=== PATIENT | male | born 1945 | race Caucasian/White ===

== ENCOUNTER 2017-12-03 09:39 | Emergency (ER) | payer MEDICARE, OTHER ==
[~2017-12-03] VITALS: Ht 182.9 cm; Wt 110.7 kg
[~2017-12-03 09:39] MED LIST: ALLO300T2 GT; ALLO300T2 PO; AMIT10TA6 PO; ASP81TEC PO; ATOR10TA66 PO; ATRV10T PO; CELE-63 PO; CLCX200C PO; DOXA8TAB3 PO; DOXA8TAB73 PO; DOXE6TAB3 PO; DOXY100C2 PO; ESOM40CA52 PO; FINA5TAB PO; GABA600T2 PO; GBPN600T PO; HYDR-3720 PO; HYDR-3820 PO; HYDR-700 PO; IPRA3AMP INH; LEVO150T PO; LISI10TA2 PO; LISI40TA PO; LVT.15T PO; NEBU-113 MC; NF-ESOM40C PO; NF-LOVAZAC PO; OXYC1TAB19 PO; PENT100C5 PO; ZOLP12.5 PO
[2017-12-03] MEDS ORDERED: RT-ALBUTEROL/IPRATROPIUM 3 ML (DUONEB) VIAL INH ONE (10:00)
--- NOTE | 2017-12-03 10:13 | ED General ---
General Chief Complaint: Cough/Cold/Flu Symptoms Stated Complaint: POSS PNUEMONIA, SOB AND RATTLING IN CHEST Source of Information: Patient Exam Limitations: No Limitations History of Present Illness Date Seen by Provider: Dec 03, 2017 Time Seen by Provider: 09:44 Initial Comments Here with report of cough and shortness of air that has worsened over the last week. Is a breathing treatment last night and that did not help. This is a metered-dose inhaler. He is currently on antibiotics for upper respiratory infection and that has not helped. Patient reports that he believes he may have pneumonia because the last time he felt like this that's what it had. Denies fevers but did report feeling warm last night and having chills. States that his temperature was not elevated at the time. He started Sudafed on his own. Reports coughing up white thick sputum. Denies nausea or vomiting. Timing/Duration: 1 Week, Getting Worse Severity: Moderate Associated Systoms: No Chest Pain, Cough, Fever/Chills, No Nausea/Vomiting, No Shortness of Air, No Weakness Allergies and Home Medications Allergies Coded Allergies: rofecoxib (Verified Allergy, Unknown, TAKES ASPIRIN AT HOME, 09/29/15) Home Medications Allopurinol 300 Mg Tablet, 300 MG PO DAILY, (Reported) Amoxicillin/Potassium Clav 1 Each Tablet, (Reported) Aspirin 81 Mg Tabec, 81 MG PO DAILY, (Reported) Atorvastatin Calcium 10 Mg Tablet, 10 MG PO DAILY, (Reported) LAST FILLED 09-27-14 #90 Doxazosin Mesylate 8 Mg Tablet, 8 MG PO HS, (Reported) Doxepin HCl 6 Mg Tablet, 6 MG PO HS PRN for INSOMNIA, (Reported) Esomeprazole Magnesium 40 Mg Capsule.dr, 40 MG PO BID, #60 Prescribed by: TISHA KEARNEY on 09/30/15 0848 Gabapentin 600 Mg Tablet, 600 MG PO BID, (Reported) Hydrocodone/Acetaminophen 1 Each Tablet, 1 TAB PO Q6H PRN for PAIN, (Reported) Ipratropium/Albuterol Sulfate 3 Ml Ampul.neb, 3 ML INH RTQ4HR, #150 Prescribed by: TISHA KEARNEY on 09/30/15 0848 Levothyroxine Sodium 150 Mcg Tablet, 150 MCG PO DAILY, (Reported) Lisinopril 40 Mg Tablet, 40 MG PO DAILY, (Reported) LAST FILLED 05-20-15 #90 [place]-3 Acid Ethyl Esters 1 Gm Capsule, 2 CAP PO BID, (Reported) UNKNOWN LAST FILL DATE, NOT ON FILE WITH [employer] MAIL ORDER OR [facility] Pentosan Polysulfate Sodium 100 Mg Capsule, 100 MG PO TID, (Reported) LAST FILLED 12-22-14 #270 Prednisone 10 Mg Tab, (Reported) [Prometh/Cod] , (Reported) Constitutional: see HPI, No chills, No fever EENTM: nose congestion, throat pain Respiratory: cough, short of breath, wheezing Cardiovascular: No chest pain, No edema Gastrointestinal: No abdominal pain, No nausea, No vomiting Musculoskeletal: No back pain, No muscle pain Skin: no symptoms reported Psychiatric/Neurological: No Symptoms Reported All Other Systems Reviewed Negative Unless Noted: Yes Past Stpnpyf-Dwqmcn-Fxqygu Hx Patient Social History Alcohol Use: Denies Use Recreational Drug Use: No Smoking Status: Never a Smoker Recent Foreign Travel: No Contact w/Someone Who Travel: No Immunizations Up To Date Tetanus Booster (TDap): Unknown Date of Pneumonia Vaccine: Jul 24, 2015 Date of Influenza Vaccine: Jul 24, 2015 Surgeries History of Surgeries: Yes Surgeries: Appendectomy, Gallbladder Respiratory History of Respiratory Disorde: No Cardiovascular History of Cardiac Disorders: Yes Cardiac Disorders: Hypertension Neurological History of Neurological Disord: No Reproductive System Hx Reproductive Disorders: No Gastrointestinal History of Gastrointestinal Di: Yes Gastrointestinal Disorders: Gastroesophageal Reflux, Gall Bladder Disease Musculoskeletal History of Musculoskeletal Dis: Yes Musculoskeletal Disorders: Arthritis Endocrine Endocrine Disorders: Hypothyroidsim Reviewed Nursing Assessment Reviewed/Agree w Nursing PMH: Yes Family Medical History Significant Family History: No Pertinent Family Hx Family Medial History: Arthritis 19 MOTHER Cancer of female genital organ G8 SISTER Diabetes mellitus G8 SISTER FH: breast cancer G8 SISTER FH: colon cancer 19 MOTHER FH: lymphoma 19 FATHER, Onset:60 years & older FH: rheumatic fever G8 SISTER Parkinson's disease 19 MOTHER, Onset:60 years & older Thyroid disease G8 SISTER Physical Exam-Suspected Sepsis Physical Exam Vital Signs Vital Signs - First Documented 12/03/17 09:43 Temp 97.0 Pulse 72 Resp 18 B/P (MAP) 154/94 (114) Pulse Ox 97 O2 Delivery Room Air Capillary Refill : General Appearance: No Apparent Distress, WD/WN HEENT: PERRL/EOMI, TMs Normal, Pharyngeal Erythema, Other (moderate bilateral nasal congestion with erythema) Neck: Non Tender, Supple Respiratory: No Respiratory Distress, Wheezing (a few scattered), Other ( course sounding cough) Cardiovascular: Regular Rate, Rhythm, No Murmur Gastrointestinal: Non Tender, Soft Back: Normal Inspection, No CVA Tenderness, No Vertebral Tenderness Extremity: Normal Range of Motion, Non Tender Neurologic/Psychiatric: Alert, Oriented x3 Skin: normal color, warm/dry Focused Exam Evaluation Lactate Level Laboratory Tests 12/03/17 10:02: Lactic Acid Level 1.61 Lactic Acid Level Laboratory Tests Test 12/03/17 10:02 Lactic Acid Level 1.61 MMOL/L (0.50-2.00) Progress/Results/Core Measures Suspected Sepsis SIRS Temperature: Pulse: Respiratory Rate: Laboratory Tests 12/03/17 10:02: White Blood Count 8.8 Blood Pressure / Mean: Laboratory Tests 12/03/17 10:02: Lactic Acid Level 1.61 Laboratory Tests 12/03/17 10:02: Creatinine 1.10, INR Comment 0.9, Platelet Count 198, Total Bilirubin 0.5 Results/Orders Lab Results Laboratory Tests Test 12/03/17 10:02 Range/Units White Blood Count 8.8 4.3-11.0 10^3/uL Red Blood Count 4.61 4.35-5.85 10^6/uL Hemoglobin 13.6 13.3-17.7 G/DL Hematocrit 39 L 40-54 % Mean Corpuscular Volume 85 80-99 FL Mean Corpuscular Hemoglobin 30 25-34 PG Mean Corpuscular Hemoglobin Concent 35 32-36 G/DL Red Cell Distribution Width 14.7 H 10.0-14.5 % Platelet Count 198 130-400 10^3/uL Mean Platelet Volume 9.6 7.4-10.4 FL Neutrophils (%) (Auto) 61 42-75 % Lymphocytes (%) (Auto) 32 12-44 % Monocytes (%) (Auto) 7 0-12 % Eosinophils (%) (Auto) 0 0-10 % Basophils (%) (Auto) 0 0-10 % Neutrophils # (Auto) 5.4 1.8-7.8 X 10^3 Lymphocytes # (Auto) 2.8 1.0-4.0 X 10^3 Monocytes # (Auto) 0.6 0.0-1.0 X 10^3 Eosinophils # (Auto) 0.0 0.0-0.3 10^3/uL Basophils # (Auto) 0.0 0.0-0.1 10^3/uL Prothrombin Time 12.6 12.2-14.7 SEC INR Comment 0.9 0.8-1.4 Activated Partial Thromboplast Time 25 24-35 SEC Sodium Level 137 135-145 MMOL/L Potassium Level 4.1 3.6-5.0 MMOL/L Chloride Level 103 98-107 MMOL/L Carbon Dioxide Level 24 21-32 MMOL/L Anion Gap 10 5-14 MMOL/L Blood Urea Nitrogen 23 H 7-18 MG/DL Creatinine 1.10 0.60-1.30 MG/DL Estimat Glomerular Filtration Rate > 60 BUN/Creatinine Ratio 21 Glucose Level 93 70-105 MG/DL Lactic Acid Level 1.61 0.50-2.00 MMOL/L Calcium Level 9.3 8.5-10.1 MG/DL Total Bilirubin 0.5 0.1-1.0 MG/DL Aspartate Amino Transf (AST/SGOT) 25 5-34 U/L Alanine Aminotransferase (ALT/SGPT) 31 0-55 U/L Alkaline Phosphatase 67 40-136 U/L Total Protein 6.9 6.4-8.2 GM/DL Albumin 4.0 3.2-4.5 GM/DL Micro Results Microbiology 12/03/17 Influenza Types A,B Antigen (ZACHARY) - Final, Complete My Orders Orders - MAURICE HERNANDEZ MD Cbc With Automated Diff (12/03/17 09:54) Comprehensive Metabolic Panel (12/03/17 09:54) Lactic Acid Analyzer (12/03/17 09:54) Blood Culture (12/03/17 09:54) Protime With Inr (12/03/17 09:54) Partial Thromboplastin Time (12/03/17 09:54) Influenza A And B Antigens (12/03/17 09:54) Chest Pa/Lat (2 View) (12/03/17 09:54) Albuterol/Ipra Inhalation Soln (Duoneb I (12/03/17 10:00) Svn Sm Volume Nebulizer Rt-Rfs (12/03/17 09:54) Medications Given in ED Current Medications Medications Dose Ordered Sig/Darya Route Start Time Stop Time Status Last Admin Dose Admin Albuterol/ Ipratropium 3 ml ONCE ONCE INH 12/03/17 10:00 12/03/17 10:01 DC 12/03/17 10:18 3 ML Vital Signs/I&O Vital Sign - Last 12Hours 12/03/17 12/03/17 09:43 10:27 Temp 97.0 Pulse 72 Resp 18 B/P (MAP) 154/94 (114) Pulse Ox 97 95 O2 Delivery Room Air Nasal Cannula Capillary Refill : Progress Note : Progress Note Seen and evaluated. IV, labs, UA, chest x-ray, DuoNeb treatment and influenza screen ordered. Monitor patient. Much improved after the DuoNeb treatment. Pending labs. 1135: Labs complete. No significant findings of pneumonia. Does have bronchitis and with history of working in the [employer] do believe he has chronic bronchitis. He would benefit from home nebulizer, especially with the current illness. He has nebulizer solution at home including DuoNeb and albuterol but does not have a machine. Breathing machine prescribed here. Patient would probably benefit from having this at all times. Discharged home with return precautions. Patient and family verbalize understanding instructions and agreement with plan. Diagnostic Imaging Diagonstic Imaging: Xray Plain Films/CT/US/NM/MRI: chest Comments VIA [facility] [place], [place] NAME: KAYLA WINTER [facility] REC#: [id number] PT STATUS: REG ER : 1945 PHYSICIAN: MAURICE HERNANDEZ MD ADMIT DATE: 12/03/17/ER Draft Date of Exam:12/03/17 CHEST PA/LAT (2 VIEW) EXAM: CHEST PA/LAT (2 VIEW) INDICATION: Cough. Congestion. COMPARISON: Chest radiograph 09/29/2015. FINDINGS: Normal heart size and pulmonary vascularity. No focal pulmonary opacity, pleural effusion or pneumothorax. No acute osseous findings. Surgical clips in the upper abdomen. IMPRESSION: No acute cardiopulmonary findings. Dictated on workstation # [id number] Dict: 12/03/17 1046 Trans: 12/03/17 1049 JOSE [id number] Interpreted by: SILVERIO MCNAMARA MD Electronically signed by: Departure Impression Impression: Primary Impression: Upper respiratory infection Qualified Codes: J06.9 - Acute upper respiratory infection, unspecified Additional Impression: Bronchitis Disposition: 01 HOME, SELF-CARE Condition: Improved Departure-Patient Inst. Decision time for Depature: 11:43 Referrals: TISHA KEARNEY DO (PCP/Family) Primary Care Physician Patient Instructions: Viral Upper Respiratory Infection, Adult (DC), Acute Bronchitis, Adult (DC) Add. Discharge Instructions: All discharge instructions reviewed with patient and/or family. Voiced understanding. You may use albuterol nebulizer treatment every 4 hours for the DuoNeb treatment every 6 hours. You may use Afrin nasal spray or the generic, 12 hour relief, 2 sprays to each nostril twice daily for 3 days only and then stop. Do not use more than 3 days. Avoid [id number] cough and cold medicine except for the Coricidin HBP as the others because of elevated blood pressure. Follow-up with your doctor this week for recheck and further evaluation. Return for worse pain, fever, vomiting, weakness, breathing problems or other concerns as needed. Copy Copies To 1: TISHA KEARNEY TIMOTHY D MD Dec 03, 2017 10:13
[2017-12-03 10:18] LABS: BASOPHILS % (AUTO) 0 % (0-10); EOSINOPHILS % (AUTO) 0 % (0-10); HEMATOCRIT 39 % (40-54); HEMOGLOBIN 13.6 G/DL (13.3-17.7); LYMPHOCYTES # (AUTO) 2.8 X 10^3 (1.0-4.0); LYMPHOCYTES % (AUTO) 32 % (12-44); MEAN CORPUSCULAR HEMOGLOBIN 30 PG (25-34); MEAN CORPUSCULAR HGB CONC 35 G/DL (32-36); MEAN CORPUSCULAR VOLUME 85 FL (80-99); MEAN PLATELET VOLUME 9.6 FL (7.4-10.4); MONOCYTES # (AUTO) 0.6 X 10^3 (0.0-1.0); MONOCYTES % (AUTO) 7 % (0-12); NEUTROPHILS # (AUTO) 5.4 X 10^3 (1.8-7.8); NEUTROPHILS % (AUTO) 61 % (42-75); PLATELET COUNT 198 10^3/uL (130-400); RED BLOOD COUNT 4.61 10^6/uL (4.35-5.85); RED CELL DISTRIBUTION WIDTH 14.7 % (10.0-14.5); WHITE BLOOD COUNT 8.8 10^3/uL (4.3-11.0)
[2017-12-03] MEDS ORDERED: PROMETH/COD (10:25)
[2017-12-03] MEDS ORDERED: PRD10T (10:25)
[2017-12-03] MEDS ORDERED: AMOX1TAB12 (10:25)
[2017-12-03 10:38] LABS: INR 0.9 (0.8-1.4); PROTHROMBIN TIME PATIENT 12.6 SEC (12.2-14.7)
--- NOTE | 2017-12-03 10:50 | Diagnostic Imaging Report ---
EXAM: CHEST PA/LAT (2 VIEW) INDICATION: Cough. Congestion. COMPARISON: Chest radiograph 09/29/2015. FINDINGS: Normal heart size and pulmonary vascularity. No focal pulmonary opacity, pleural effusion or pneumothorax. No acute osseous findings. Surgical clips in the upper abdomen. IMPRESSION: No acute cardiopulmonary findings. Dictated by: Dictated on workstation # [id number]
[2017-12-03 11:35] LABS: ALANINE AMINOTRANSFERASE 31 U/L (0-55); ALKALINE PHOSPHATASE 67 U/L (40-136); BILIRUBIN,TOTAL 0.5 MG/DL (0.1-1.0); BUN/CREATININE RATIO 21; CALCIUM 9.3 MG/DL (8.5-10.1); CARBON DIOXIDE 24 MMOL/L (21-32); CHLORIDE 103 MMOL/L (98-107); GFR ESTIMATED > 60; GLUCOSE 93 MG/DL (70-105); POTASSIUM 4.1 MMOL/L (3.6-5.0); SODIUM 137 MMOL/L (135-145); TOTAL PROTEIN 6.9 GM/DL (6.4-8.2)
[2017-12-03 11:58] VITALS: BP 152/79
--- OUTSIDE RECORDS SUMMARY | 2017-12-04 11:17 | XMS REPORT | Clinical Summary ---
Author Author [facility] Organization [facility] Address Unknown Phone Unavailable Care Team Providers Care Air Conditioning Insulation Installer Name Role Phone Georgie Francisco MD Unavailable Source Comments Some departments are not documenting in the electronic medical record. If you do not see the information that you expected, contact Release of Information in the Health Information Management department at [phone] for further assistance in locating additional records.[facility] Allergies Not on File Current Medications Prescription Sig. Disp. Refills Start End Date Status Date niacin CR (NIASPAN) 500 Take 1 Tab by mouth 60 Tab 0 08/14/20 Active mg Tb24 tablet daily. 12 Active Problems Not on file Social History Tobacco Use Types Packs/Day Years Used Date Never Assessed Sex Assigned at Date Recorded Not on file Last Filed Vital Signs Not on file Plan of Treatment Health Maintenance Due Date Last Done Comments HEPATITIS C SCREENING 1945 PHYSICAL (COMPREHENSIVE) 1952 EXAM PERTUSSIS VACCINE 1957 TETANUS VACCINE 1963 COLORECTAL CANCER 1996 SCREENING SHINGLES VACCINE 2006 PREVNAR/PNEUMOVAX (#1) 2011 INFLUENZA VACCINE 05/24/2017 Results Not on filefrom Last 3 Months
--- OUTSIDE RECORDS SUMMARY | 2017-12-04 11:18 | XMS REPORT | Continuity of Care Document ---
Author Author [facility] [address] Organization [facility] [address] Address Unknown Phone Unavailable Allergies Active Description Code Type Severity Reaction Onset Reported/Identified Relationship to Patient Clinical Status Yes rofecoxib [id number] Drug Allergy Unknown N/A 11/05/2006 Yes rofecoxib [id number] Drug Allergy Unknown TAKES ASPIRIN A 09/29/2015 Medications There is no data. Problems Date Dx Coded Attending Type Code Diagnosis Diagnosed By 05/26/2011 Ot 592.0 CALCULUS OF KIDNEY 07/10/2012 Ot 715.36 LOC OSTEOARTH NOS-L/LEG 07/10/2012 Ot V57.1 PHYSICAL THERAPY NEC 07/14/2012 Ot 722.52 LUMB/ LUMBOSAC DISC DEGEN 07/14/2012 Ot V57.1 PHYSICAL THERAPY NEC 09/17/2013 PETEY WHITNEY, ROSALIE Gross Ot 562.10 DIVERTICULOSIS COLON (W/O MENT OF HEMORR 09/17/2013 PETEY WHITNEY, ROSALIE Gross Ot V12.72 PERSONAL HISTORY OF COLONIC POLYPS 02/25/2015 CHRISTEL LUIS, TISHA S Ot 611.71 02/25/2015 CHRISTEL LUIS TISHA S Ot 611.72 03/22/2015 JUN SOLORZANO MD Ot 244.9 HYPOTHYROIDISM NOS 03/22/2015 JUN SOLORZANO MD Ot 401.9 HYPERTENSION NOS 03/22/2015 JUN SOLORZANO MD Ot 787.91 DIARRHEA 09/29/2015 Ot 592.0 09/29/2015 Ot 592.0 09/30/2015 AYDENDDARRYL DO TISHA S Ot E03.9 HYPOTHYROIDISM, UNSPECIFIED 09/30/2015 ORENDDARRYL DO TISHA S Ot I10 ESSENTIAL (PRIMARY) HYPERTENSION 09/30/2015 AYDENDDARRYL DO TISHA S Ot I20.9 ANGINA PECTORIS, UNSPECIFIED 09/30/2015 AYDENDDARRYL DO TISHA S Ot I44.7 LEFT BUNDLE-BRANCH BLOCK, UNSPECIFIED 09/30/2015 TISHA KEARNEY DO Ot J45.909 UNSPECIFIED ASTHMA, UNCOMPLICATED 09/30/2015 TISHA KEARNEY DO S Ot K21.9 GASTRO-ESOPHAGEAL REFLUX DISEASE WITHOUT 09/30/2015 TISHA KEARNEY DO S Ot 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 09/30/2015 TISHA KEARNEY DO S Ot R06.09 OTHER FORMS OF DYSPNEA 09/30/2015 TISHA KEARNEY DO S Ot R07.89 OTHER CHEST PAIN 09/30/2015 TISHA KEARNEY DO S Ot Z79.899 OTHER JAIL (CURRENT) DRUG THERAPY 09/30/2015 TISHA KEARNEY DO S Ot Z87.891 PERSONAL HISTORY OF NICOTINE DEPENDENCE 10/29/2015 TISHA KEARNEY DO S Ot R06.00 10/29/2015 TISHA KEARNEY DO Ot R07.9 10/29/2015 TISHA KEARNEY DO S Ot R78.89 04/15/2016 TISHA KEARNEY DO S Ot M25.512 PAIN IN LEFT SHOULDER 04/15/2016 TISHA KEARNEY DO S Ot M54.2 CERVICALGIA 05/07/2016 TISHA KEARNEY DO S Ot M25.512 PAIN IN LEFT SHOULDER 05/07/2016 TISHA KEARNEY DO S Ot M54.2 CERVICALGIA 05/08/2016 Ot 592.0 CALCULUS OF KIDNEY 05/08/2016 Ot 717.3 DERANG MED MENISCUS NEC 05/08/2016 Ot 721.3 LUMBOSACRAL SPONDYLOSIS 05/08/2016 TISHA KEARNEY DO S Ot 608.9 MALE GENITAL DIS NOS 05/08/2016 PETEY WHITNEY, ROSALIE Gross Ot V72.84 EXAM PRE-OPERATIVE NOS 05/08/2016 TISHA KEARNEY DO Ot 397.0 TRICUSPID VALVE DISEASE 05/08/2016 TISHA KEARNEY DO S Ot 401.9 HYPERTENSION NOS 05/08/2016 TISHA KEARNEY DO S Ot 424.0 MITRAL VALVE DISORDER 05/08/2016 TISHA KEARNEY DO Ot 782.3 EDEMA 05/08/2016 PABLO KEARNEY DOQUELINE S Ot 786.2 COUGH 05/08/2016 AYDENDER DO, TISHA S Ot 611.71 MASTODYNIA 05/08/2016 AYDENDER DO, TISHA S Ot 611.72 LUMP OR MASS IN BREAST 05/08/2016 AYDENDER DOPABLOTISHA S Ot R06.00 DYSPNEA, UNSPECIFIED 05/08/2016 AYDENDER DOPABLOTISHA S Ot R07.9 CHEST PAIN, UNSPECIFIED 05/08/2016 AYDENDER DO, TISHA S Ot R06.00 DYSPNEA, UNSPECIFIED 05/08/2016 ORENDER DO, TISHA S Ot R07.9 CHEST PAIN, UNSPECIFIED 05/08/2016 AYDENDER DOPABLOTISHA S Ot R78.89 FINDING OF OTH SUBSTANCES, NOT NORMALLY 05/09/2016 Ot 592.0 CALCULUS OF KIDNEY 05/09/2016 Ot 717.3 DERANG MED MENISCUS NEC 05/09/2016 Ot 721.3 LUMBOSACRAL SPONDYLOSIS 05/09/2016 LOGAN KEARNEY DOLINE S Ot 608.9 MALE GENITAL DIS NOS 05/09/2016 PETEY WHITNEY, ROSALIE Gross Ot V72.84 EXAM PRE-OPERATIVE NOS 05/09/2016 AYDENDLOGAN ANDREWS DOLINE S Ot 397.0 TRICUSPID VALVE DISEASE 05/09/2016 AYDENDER DOPABLOTISHA S Ot 401.9 HYPERTENSION NOS 05/09/2016 AYDENDER PABLO LUISTISHA S Ot 424.0 MITRAL VALVE DISORDER 05/09/2016 AYDENDPABLO ANDREWS DOQUELINE S Ot 782.3 EDEMA 05/09/2016 AYDENDER LOGAN LUISLINE S Ot 786.2 COUGH 05/09/2016 AYDENDER PABLO LUISTISHA S Ot 611.71 MASTODYNIA 05/09/2016 AYDENDER DO, TISHA S Ot 611.72 LUMP OR MASS IN BREAST 05/09/2016 AYDENDER DOPABLOTISHA S Ot R06.00 DYSPNEA, UNSPECIFIED 05/09/2016 AYDENDER DOPABLOTISHA S Ot R07.9 CHEST PAIN, UNSPECIFIED 05/09/2016 AYDENDER DO, TISHA S Ot R06.00 DYSPNEA, UNSPECIFIED 05/09/2016 AYDENDER PABLO LUISTISHA S Ot R07.9 CHEST PAIN, UNSPECIFIED 05/09/2016 ORENDER DO, TISHA S Ot R78.89 FINDING OF OTH SUBSTANCES, NOT NORMALLY 05/09/2016 Ot 592.0 CALCULUS OF KIDNEY 05/09/2016 Ot 717.3 DERANG MED MENISCUS NEC 05/09/2016 Ot 721.3 LUMBOSACRAL SPONDYLOSIS 05/09/2016 ORENDER DO, TISHA S Ot 608.9 MALE GENITAL DIS NOS 05/09/2016 PETEY WHITNEY, ROSALIE Gross Ot V72.84 EXAM PRE-OPERATIVE NOS 05/09/2016 ORENDER DO, TISHA S Ot 397.0 TRICUSPID VALVE DISEASE 05/09/2016 ORENDER DO, TISHA S Ot 401.9 HYPERTENSION NOS 05/09/2016 AYDENDER DO, TISHA S Ot 424.0 MITRAL VALVE DISORDER 05/09/2016 AYDENDER DO, TISHA S Ot 782.3 EDEMA 05/09/2016 AYDENDER DO, TISHA S Ot 786.2 COUGH 05/09/2016 AYDENDER DO, TISHA S Ot 611.71 MASTODYNIA 05/09/2016 ORENDER DO, TISHA S Ot 611.72 LUMP OR MASS IN BREAST 05/09/2016 AYDENDER DO, TISHA S Ot R06.00 DYSPNEA, UNSPECIFIED 05/09/2016 ORENDER DO, TISHA S Ot R07.9 CHEST PAIN, UNSPECIFIED 05/09/2016 ORENDER DO, TISHA S Ot R06.00 DYSPNEA, UNSPECIFIED 05/09/2016 ORENDER DO, TISHA S Ot R07.9 CHEST PAIN, UNSPECIFIED 05/09/2016 ORENDER DO, TISHA S Ot R78.89 FINDING OF OTH SUBSTANCES, NOT NORMALLY 07/08/2016 Ot 592.0 CALCULUS OF KIDNEY 07/08/2016 Ot 717.3 DERANG MED MENISCUS NEC 07/08/2016 Ot 721.3 LUMBOSACRAL SPONDYLOSIS 07/08/2016 AYDENDER DO, TISHA S Ot 608.9 MALE GENITAL DIS NOS 07/08/2016 ROSALIE ANGELO MD Ot V72.84 EXAM PRE-OPERATIVE NOS 07/08/2016 AYDENDER DOPABLOTISHA S Ot 397.0 TRICUSPID VALVE DISEASE 07/08/2016 AYDENDER DO, TISHA S Ot 401.9 HYPERTENSION NOS 07/08/2016 AYDENDER DO, TISHA S Ot 424.0 MITRAL VALVE DISORDER 07/08/2016 AYDENDER DO, TISHA S Ot 782.3 EDEMA 07/08/2016 AYDENDER DO, TISHA S Ot 786.2 COUGH 07/08/2016 AYDENDER DO, TISHA S Ot 611.71 MASTODYNIA 07/08/2016 AYDEND DO, TISHA S Ot 611.72 LUMP OR MASS IN BREAST 07/08/2016 AYDEND DO, TISHA S Ot R06.00 DYSPNEA, UNSPECIFIED 07/08/2016 AYDEND DO, TISHA S Ot R07.9 CHEST PAIN, UNSPECIFIED 07/08/2016 AYDENDER DO, TISHA S Ot R06.00 DYSPNEA, UNSPECIFIED 07/08/2016 AYDEND DO, TISHA S Ot R07.9 CHEST PAIN, UNSPECIFIED 07/08/2016 AYDEND DO TISHA S Ot R78.89 FINDING OF OTH SUBSTANCES, NOT NORMALLY 09/01/2016 Ot 592.0 CALCULUS OF KIDNEY 09/01/2016 Ot 717.3 DERANG MED MENISCUS NEC 09/01/2016 Ot 721.3 LUMBOSACRAL SPONDYLOSIS 09/01/2016 DOUGLAS TISHA S Ot 608.9 MALE GENITAL DIS NOS 09/01/2016 PETEY WHITNEY, ROSALIE Gross Ot V72.84 EXAM PRE-OPERATIVE NOS 09/01/2016 AYDEDEYANIRADARRYL TISHA S Ot 397.0 TRICUSPID VALVE DISEASE 09/01/2016 AYDEND DO, TISHA S Ot 401.9 HYPERTENSION NOS 09/01/2016 AYDENDER DO, TISHA S Ot 424.0 MITRAL VALVE DISORDER 09/01/2016 AYDENDER DO, TISHA S Ot 782.3 EDEMA 09/01/2016 AYDENDER DO, TISHA S Ot 786.2 COUGH 09/01/2016 AYDENDER DO, TISHA S Ot 611.71 MASTODYNIA 09/01/2016 AYDENDER DO, TISHA S Ot 611.72 LUMP OR MASS IN BREAST 09/01/2016 TISHA KEARNEY DO Ot R06.00 DYSPNEA, UNSPECIFIED 09/01/2016 TISHA KEARNEY DO Ot R07.9 CHEST PAIN, UNSPECIFIED 09/01/2016 TISHA KEARNEY DO Ot R06.00 DYSPNEA, UNSPECIFIED 09/01/2016 TISHA KEARNEY DO Ot R07.9 CHEST PAIN, UNSPECIFIED 09/01/2016 TISHA KEARNEY DO Ot R78.89 FINDING OF OTH SUBSTANCES, NOT NORMALLY Procedures There is no data. Results Test Result Range Complete blood count (CBC) with automated white blood cell (WBC) differential - 12/03/17 10:02 Blood leukocytes automated count (number/volume) 8.8 10*3/uL 4.3-11.0 Blood erythrocytes automated count (number/volume) 4.61 10*6/uL 4.35-5.85 Venous blood hemoglobin measurement (mass/volume) 13.6 g/dL 13.3-17.7 Blood hematocrit (volume fraction) 39 % 40-54 Automated erythrocyte mean corpuscular volume 85 [foz_us] 80-99 Automated erythrocyte mean corpuscular hemoglobin (mass per erythrocyte) 30 pg 25-34 Automated erythrocyte mean corpuscular hemoglobin concentration measurement ( mass/volume) 35 g/dL 32-36 Automated erythrocyte distribution width ratio 14.7 % 10.0-14.5 Automated blood platelet count (count/volume) 198 10*3/uL 130-400 Automated blood platelet mean volume measurement 9.6 [foz_us] 7.4-10.4 Automated blood neutrophils/100 leukocytes 61 % 42-75 Automated blood lymphocytes/100 leukocytes 32 % 12-44 Blood monocytes/100 leukocytes 7 % 0-12 Automated blood eosinophils/100 leukocytes 0 % 0-10 Automated blood basophils/100 leukocytes 0 % 0-10 Blood neutrophils automated count (number/volume) 5.4 10*3 1.8-7.8 Blood lymphocytes automated count (number/volume) 2.8 10*3 1.0-4.0 Blood monocytes automated count (number/volume) 0.6 10*3 0.0-1.0 Automated eosinophil count 0.0 10*3/uL 0.0-0.3 Automated blood basophil count (count/volume) 0.0 10*3/uL 0.0-0.1 Influenza virus A and B antigen detection - 12/03/17 10:02 FLU RESULT NEGATIVE FOR INFLUENZA A AND B ANTIGENS BY IA NRG Blood lactic acid measurement (moles/volume) - 12/03/17 10:02 Blood lactic acid measurement (moles/volume) 1.61 mmol/L 0.50-2.00 PT panel in platelet poor plasma by coagulation assay - 12/03/17 10:02 Prothrombin time (PT) in platelet poor plasma by coagulation assay 12.6 s 12.2-14.7 INR in platelet poor plasma or blood by coagulation assay 0.9 0.8-1.4 Activated partial thromboplastin time (aPTT) in platelet poor plasma bycoagulation assay - 12/03/17 10:02 Activated partial thromboplastin time (aPTT) in platelet poor plasma bycoagulation assay 25 s 24-35 Comprehensive metabolic panel - 12/03/17 10:02 Serum or plasma sodium measurement (moles/volume) 137 mmol/L 135-145 Serum or plasma potassium measurement (moles/volume) 4.1 mmol/L 3.6-5.0 Serum or plasma chloride measurement (moles/volume) 103 mmol/L 98-107 Carbon dioxide 24 mmol/L 21-32 Serum or plasma anion gap determination (moles/volume) 10 mmol/L 5-14 Serum or plasma urea nitrogen measurement (mass/volume) 23 mg/dL 7-18 Serum or plasma creatinine measurement (mass/volume) 1.10 mg/dL 0.60-1.30 Serum or plasma urea nitrogen/creatinine mass ratio 21 NRG Serum or plasma creatinine measurement with calculation of estimated glomerular filtration rate > NR Serum or plasma glucose measurement (mass/volume) 93 mg/dL 70-105 Serum or plasma calcium measurement (mass/volume) 9.3 mg/dL 8.5-10.1 Serum or plasma total bilirubin measurement (mass/volume) 0.5 mg/dL 0.1-1.0 Serum or plasma alkaline phosphatase measurement (enzymatic activity/volume) 67 U/L 40-136 Serum or plasma aspartate aminotransferase measurement (enzymatic activity/ volume) 25 U/L 5-34 Serum or plasma alanine aminotransferase measurement (enzymatic activity/volume ) 31 U/L 0-55 Serum or plasma protein measurement (mass/volume) 6.9 g/dL 6.4-8.2 Serum or plasma albumin measurement (mass/volume) 4.0 g/dL 3.2-4.5 Encounters ACCT No. Visit Date/Time Discharge Status Pt. Type Provider Facility Loc./Unit Complaint [id number] 05/07/2016 08:27:00 05/07/2016 10:36:00 DIS Outpatient CHRISTEL LUIS TISHA S [facility] [address] REHAB CERVICAL AND L SHOULDER PAIN [id number] 09/29/2015 11:50:00 09/30/2015 10:00:00 DIS Outpatient AYDENDDARRYL DO TISHA S [facility] [address] CATH CHEST PAIN,SOB [id number] 09/22/2015 12:05:00 09/22/2015 23:59:59 CLS Outpatient CHRISTEL LUIS TISHA S [facility] [address] RAD CHEST PAIN,DYSPNEA, ELEVATED D-DIMER [id number] 09/22/2015 10:54:00 09/22/2015 23:59:59 CLS Outpatient CHRISTEL LUIS TISHA S [facility] [address] LAB DYSPNEA, CHEST PAIN [id number] 03/22/2015 09:57:00 03/22/2015 13:42:00 DIS Emergency JEANINE WHITNEY, JUN Gray [facility] [address] ER DIARRHEA/CHILLS TICK BITES [id number] 01/27/2015 09:08:00 01/27/2015 23:59:59 CLS Outpatient CHRISTEL LUIS TISHA S [facility] [address] RAD BILAT BREAST PAIN, SWELLING [id number] 02/05/2014 11:54:00 02/05/2014 23:59:59 CLS Outpatient CHRISTEL LUIS TISHA S [facility] [address] RAD COUGH [id number] 12/14/2013 10:26:00 12/14/2013 23:59:59 CLS Outpatient CHRISTEL LUIS TISHA S [facility] [address] CARD EDEMA,HTN [id number] 09/17/2013 06:47:00 09/17/2013 09:40:00 DIS Outpatient ROSALIE ANGELO MD [facility] [address] SDC HX POLYPS, ABDOMINAL PAIN [id number] 09/13/2013 07:10:00 09/13/2013 23:59:59 CLS Outpatient ROSALIE ANGELO MD [facility] [address] PREOP HX POLYPS, ABDOMINAL PAIN [id number] 08/17/2013 11:53:00 08/17/2013 23:59:59 CLS Outpatient TISHA KEARNEY DO [facility] [address] RAD LT TESTICULAR PAIN [id number] 12/03/2017 10:35:00 Document Registration [id number] 07/10/2012 12:57:00 Document Registration [id number] 05/24/2012 11:06:00 Document Registration [id number] 03/31/2012 13:37:00 Document Registration [id number] 05/27/2011 00:00:00 Document Registration [id number] 03/02/2011 09:55:00 Document Registration [id number] 07/30/2010 00:00:00 Document Registration
== END 2017-12-03 11:56 | disposition home or self-care (01) ==
LOC: EDUNIT# 09:39 → ER 09:40
DX: J06.9 Acute upper respiratory infection, unspecified (principal); K21.9 Gastro-esophageal reflux disease without esophagitis; E03.9 Hypothyroidism, unspecified; I10 Essential (primary) hypertension; Z90.49 Acquired absence of other specified parts of digestive tract; Z79.52 Long term (current) use of systemic steroids; Z79.82 Long term (current) use of aspirin; Z88.8 Allergy status to other drugs, medicaments and biological substances
CPT/HCPCS: 36415; 71046; 80053; 83605; 85025; 85610; 85730; 87040; 87804; 94640; 99284

== ENCOUNTER → 2018-11-20 | Outpatient (CLI) | payer MEDICARE, OTHER ==
[~2018-11-20] MED LIST changes: +AMOX1TAB12; -GABA600T2 PO; -IPRA3AMP INH; +IPRA3AMP31 INH; +PRD10T; +PROMETH/COD
--- NOTE | 2018-11-20 12:17 | Diagnostic Imaging Report ---
EXAMINATION: PA and lateral chest at 11:12 a.m. INDICATION: Productive cough. FINDINGS: The heart size is within normal limits and stable when compared to 12/03/2017. The lungs are clear. There is no evidence for failure, pneumonia, or for a pleural effusion. The mediastinum is not widened. The osseous structures are intact. IMPRESSION: There is no evidence for active disease. When compared to the prior exam, there has been no significant change. Dictated by: Dictated on workstation # [id number]
== END ==
LOC: RAD 11:03
PROVIDERS: ATTEND Family Medicine
DX: R05 Cough (principal)
CPT/HCPCS: 71046

== ENCOUNTER 2018-11-27 06:33 | Outpatient (CLI) | payer MEDICARE, OTHER ==
[~2018-11-27] VITALS: Ht 188 cm; Wt 103.9 kg
[2018-11-27] MEDS ORDERED: TRIA1TAB3 PO (16:08)
[2018-11-27] MEDS ORDERED: PENT100C3 PO (16:08)
[2018-11-27] MEDS ORDERED: ESOM40CA52 PO (16:08)
[2018-11-27] MEDS ORDERED: LEVO137T2 PO (16:08)
[2018-11-27] MEDS ORDERED: FINA5TAB6 PO (16:08)
== END 2018-11-27 16:09 | disposition home or self-care (01) ==
LOC: PREOP 06:33
PROVIDERS: ATTEND Surgery
DX: Z01.818 Encounter for other preprocedural examination (principal)

== ENCOUNTER 2018-12-04 08:32 | Day surgery (SDC) | payer MEDICARE, OTHER ==
[~2018-12-04] VITALS: Ht 188 cm; Wt 103.9 kg
[~2018-12-04 08:32] MED LIST changes: +FINA5TAB6 PO; +LEVO137T2 PO; +PENT100C3 PO; +TRIA1TAB3 PO
--- OUTSIDE RECORDS SUMMARY | 2018-12-04 08:37 | XMS REPORT | Clinical Summary ---
Author Author [facility] Organization [facility] Address Unknown Phone Unavailable Care Team Providers Care Vp Software Support Name Role Phone Georgie Francisco MD Unavailable Source Comments Some departments are not documenting in the electronic medical record. If you do not see the information that you expected, contact Release of Information in the Health Information Management department at [phone] for further assistance in locating additional records.[facility] Allergies Not on File Medications End Date Status Medication Sig Dispensed Refills Start Date Active niacin CR (NIASPAN) 500 Take 1 Tab by 60 Tab 0 mg Tb24 tablet mouth daily. 2 Active Problems Not on file Social History Date Tobacco Use Types Packs/Day Years Used Never Assessed Sex Assigned at Date Recorded Not on file Industry Job Start Date Occupation Not on file Not on file Not on file Travel End Travel History Travel Start No recent travel history available. Last Filed Vital Signs Not on file Plan of Treatment Health Maintenance Due Date Last Done Comments HEPATITIS C SCREENING 1945 PHYSICAL (COMPREHENSIVE) 1953 EXAM DTAP/TDAP VACCINES (1 - 1964 Tdap) COLORECTAL CANCER 1996 SCREENING SHINGLES RECOMBINANT 1996 VACCINE (1 of 2) PNEUMONIA (PCV13/PPSV23) 2011 VACCINES (1 of 2 - PCV13) INFLUENZA VACCINE 05/24/2018 Results Not on filefrom Last 3 Months
--- OUTSIDE RECORDS SUMMARY | 2018-12-04 08:38 | XMS REPORT | Continuity of Care Document ---
Author Author [facility] Organization [facility] Address Unknown Phone Unavailable Allergies Active Description Code Type Severity Reaction Onset Reported/Identified Relationship to Patient Clinical Status Yes rofecoxib [id number] Drug Allergy Unknown N/A 11/05/2006 Yes rofecoxib [id number] Drug Allergy Unknown TAKES ASPIRIN A 09/29/2015 [...] TISHA S Ot E03.9 HYPOTHYROIDISM, UNSPECIFIED 09/30/2015 ORENDER DO TISHA S Ot I10 ESSENTIAL (PRIMARY) HYPERTENSION 09/30/2015 AYDENDADRRYL DO TISHA S Ot I20.9 ANGINA PECTORIS, UNSPECIFIED 09/30/2015 AYDENDDARRYL DO TISHA S Ot I44.7 LEFT BUNDLE-BRANCH BLOCK, UNSPECIFIED 09/30/2015 TISHA GONZALEZ DO Ot J45.909 UNSPECIFIED ASTHMA, UNCOMPLICATED 09/30/2015 TISHA GONZALEZ DO S Ot K21.9 GASTRO-ESOPHAGEAL REFLUX DISEASE WITHOUT 09/30/2015 TISHA GONZALEZ DO S Ot 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 09/30/2015 TISHA GONZALEZ DO S Ot R06.09 OTHER FORMS OF DYSPNEA 09/30/2015 TISHA GONZALEZ DO S Ot R07.89 OTHER CHEST PAIN 09/30/2015 TISHA GONZALEZ DO S Ot Z79.899 OTHER JAIL (CURRENT) DRUG THERAPY 09/30/2015 TISHA GONZALEZ DO S Ot Z87.891 PERSONAL HISTORY OF NICOTINE DEPENDENCE 10/29/2015 TISHA GONZALEZ DO S Ot R06.00 10/29/2015 TISHA GONZALEZ DO Ot R07.9 10/29/2015 TISHA GONZALEZ DO S Ot R78.89 04/15/2016 TISHA GONZALEZ DO S Ot M25.512 PAIN IN LEFT SHOULDER 04/15/2016 TISHA GONZALEZ DO S Ot M54.2 CERVICALGIA 05/07/2016 TISHA GONZALEZ DO S Ot M25.512 PAIN IN LEFT SHOULDER 05/07/2016 TISHA GONZALEZ DO S Ot M54.2 CERVICALGIA 05/08/2016 Ot 592.0 CALCULUS OF KIDNEY 05/08/2016 Ot 717.3 DERANG MED MENISCUS NEC 05/08/2016 Ot 721.3 LUMBOSACRAL SPONDYLOSIS 05/08/2016 TISHA GONZALEZ DO S Ot 608.9 MALE GENITAL DIS NOS 05/08/2016 PETEY WHITNEY, ROSALIE Gross Ot V72.84 EXAM PRE-OPERATIVE NOS 05/08/2016 TISHA GONZALEZ DO Ot 397.0 TRICUSPID VALVE DISEASE 05/08/2016 TISHA GONZALEZ DO S Ot 401.9 HYPERTENSION NOS 05/08/2016 TISHA GONZALEZ DO S Ot 424.0 MITRAL VALVE DISORDER 05/08/2016 TISHA GONZALEZ DO Ot 782.3 EDEMA 05/08/2016 PABLO GONZALEZ DOQUELINE S Ot 786.2 COUGH 05/08/2016 AYDENDER [...] 05/09/2016 Ot 721.3 LUMBOSACRAL SPONDYLOSIS 05/09/2016 LOGAN GONZALEZ DOLINE S Ot 608.9 MALE GENITAL DIS [...] 611.72 LUMP OR MASS IN BREAST 09/01/2016 ORENDER DO, TISHA S Ot R06.00 DYSPNEA, UNSPECIFIED 09/01/2016 ORENDER DO, TISHA S Ot R07.9 CHEST PAIN, UNSPECIFIED 09/01/2016 ORENDER DO, TISHA S Ot R06.00 DYSPNEA, UNSPECIFIED 09/01/2016 ORENDER DO, TISHA S Ot R07.9 CHEST PAIN, UNSPECIFIED 09/01/2016 ORENDER DO, TISHA S Ot R78.89 FINDING OF OTH SUBSTANCES, NOT NORMALLY 12/03/2017 MAURICE HERNANDEZ MD Ot E03.9 HYPOTHYROIDISM, UNSPECIFIED 12/03/2017 MAURICE HERNANDEZ MD Ot I10 ESSENTIAL (PRIMARY) HYPERTENSION 12/03/2017 MAURICE HERNANDEZ MD, Ot J06.9 ACUTE UPPER RESPIRATORY INFECTION, UNSPE 12/03/2017 MAURICE HERNANDEZ MD Ot K21.9 GASTRO-ESOPHAGEAL REFLUX DISEASE WITHOUT 12/03/2017 MAURICE HERNANDEZ MD Ot R06.02 SHORTNESS OF BREATH 12/03/2017 MAURICE HERNANDEZ MD Ot Z79.52 RESEARCH CLERK (CURRENT) USE OF SYSTEMIC STER 12/03/2017 MAURICE HERNANDEZ MD Ot Z79.82 JAIL (CURRENT) USE OF ASPIRIN 12/03/2017 MAURICE HERNANDEZ MD Ot Z88.8 ALLERGY STATUS TO OTH DRUG/MEDS/BIOL SUB 12/03/2017 MAURICE HERNANDEZ MD Ot Z90.49 ACQUIRED ABSENCE OF OTHER SPECIFIED PART 11/20/2018 AYDENDER DO, TISHA S Ot 608.9 MALE GENITAL DIS NOS 11/20/2018 PETEY WHITNEY, ROSALIE Gross Ot V72.84 EXAM PRE-OPERATIVE NOS 11/20/2018 AYDENDER DO, TISHA S Ot 397.0 TRICUSPID VALVE DISEASE 11/20/2018 ORENDER DO, TISHA S Ot 401.9 HYPERTENSION NOS 11/20/2018 ORENDER DO, TISHA S Ot 424.0 MITRAL VALVE DISORDER 11/20/2018 ORENDER DO, TISHA S Ot 782.3 EDEMA 11/20/2018 ORENDER DO, TISHA S Ot 786.2 COUGH 11/20/2018 AYDENDER DO, TISHA S Ot 611.71 MASTODYNIA 11/20/2018 TISHA GONZALEZ DO Ot 611.72 LUMP OR MASS IN BREAST 11/20/2018 CHRISTEL LUIS, TISHA Gould Ot R06.00 DYSPNEA, UNSPECIFIED 11/20/2018 AYDENDDARRYL LUIS, TISHA Gould Ot R07.9 CHEST PAIN, UNSPECIFIED 11/20/2018 AYDENDDARRYL LUIS, TISHA Gould Ot R06.00 DYSPNEA, UNSPECIFIED 11/20/2018 AYDENDER , TISHA Gould Ot R07.9 CHEST PAIN, UNSPECIFIED 11/20/2018 AYDENDDARRYL LUIS, TISHA Gould Ot R78.89 FINDING OF OTH SUBSTANCES, NOT NORMALLY 11/28/2018 PETEY WHITNEY, ROSALIE Gross Ot Z01.818 ENCOUNTER FOR OTHER PREPROCEDURAL EXAMIN Procedures There is no data. Results Test [...] calculation of estimated glomerular filtration rate > NRG Serum or plasma glucose measurement (mass/volume) 93 [...] plasma albumin measurement (mass/volume) 4.0 g/dL 3.2-4.5 Bacterial blood culture - 12/03/17 10:02 Bacterial blood culture NG NRG Encounters ACCT No. Visit Date/Time Discharge Status Pt. Type Provider Facility Loc./Unit Complaint [id number] 11/27/2018 06:33:00 11/27/2018 16:09:00 DIS Outpatient PETEY WHITNEY, ROSALIE Gross [facility] PREOP COLONOSCOPY [id number] 11/20/2018 11:03:00 11/20/2018 23:59:59 CLS Outpatient PABLO GONZALEZ DOQUELINE S [facility] RAD COUGH [id number] 12/03/2017 09:40:00 12/03/2017 11:56:00 DIS Emergency MAURICE HERNANDEZ MD [facility] ER POSS PNUEMONIA, SOB AND RATTLING IN CHEST [id number] 05/07/2016 08:27:00 05/07/2016 10:36:00 DIS Outpatient CHRISTEL LUIS TISHA S [facility] REHAB CERVICAL AND L SHOULDER PAIN [id number] 09/29/2015 11:50:00 09/30/2015 10:00:00 DIS Outpatient CHRISTEL LUIS TISHA S [facility] CATH CHEST PAIN,SOB [id number] 09/22/2015 12:05:00 09/22/2015 23:59:59 CLS Outpatient CHRISTEL LUIS TISHA S [facility] RAD CHEST PAIN,DYSPNEA, ELEVATED D-DIMER [id number] 09/22/2015 10:54:00 09/22/2015 23:59:59 CLS Outpatient PABLO GONZALEZ DOQUELINE S [facility] LAB DYSPNEA, CHEST PAIN [id number] 03/22/2015 09:57:00 03/22/2015 13:42:00 DIS Emergency JEANINE WHITNEY, JUN Gray [facility] ER DIARRHEA/CHILLS TICK BITES [id number] 01/27/2015 09:08:00 01/27/2015 23:59:59 CLS Outpatient TISHA GONZALEZ DO [facility] RAD BILAT BREAST PAIN, SWELLING [id number] 02/05/2014 11:54:00 02/05/2014 23:59:59 CLS Outpatient PABLO GONZALEZ DOQUELINE S [facility] RAD COUGH [id number] 12/14/2013 10:26:00 12/14/2013 23:59:59 CLS Outpatient TISHA GONZALEZ DO S [facility] CARD EDEMA,HTN [id number] 09/17/2013 06:47:00 09/17/2013 09:40:00 DIS Outpatient ROSALIE ANGELO MD [facility] SDC HX POLYPS, ABDOMINAL PAIN [id number] 09/13/2013 07:10:00 09/13/2013 23:59:59 CLS Outpatient ROSAILE ANGELO MD [facility] PREOP HX POLYPS, ABDOMINAL PAIN [id number] 08/17/2013 11:53:00 08/17/2013 23:59:59 CLS Outpatient TISHA GONZALEZ DO [facility] RAD LT TESTICULAR PAIN [id number] 12/04/2018 09:30:00 PEN Preadmit ROSALIE ANGELO MD [facility] ENDO POLYP SURVEILLANCE [id number] 07/10/2012 12:57:00 Document Registration [id number] 05/24/2012 11:06:00 Document Registration [id number] 03/31/2012 13:37:00 Document Registration [id number] 05/27/2011 00:00:00 Document Registration [id number] 03/02/2011 09:55:00 Document Registration [id number] 07/30/2010 00:00:00 Document Registration 12/201711/27/2018 15:26:28 11/27/2018 23:59:59 CLS Outpatient Tisha Gonzalez.
[2018-12-04 08:45] VITALS: BP 147/78
[2018-12-04] MEDS ORDERED: NS IV 500 ML 500 ML IV PRN (08:46)
[2018-12-04] MEDS ORDERED: NS IV 500 ML 500 ML ONE (08:58)
[2018-12-04] MEDS ORDERED: fentaNYL INJECTION 100 MCG/2 ML AMP IVP ONE (09:00)
[2018-12-04] MEDS ORDERED: MIDAZOLAM 2 MG/2 ML (VERSED) VIAL IVP ONE (09:00)
--- NOTE | 2018-12-04 09:41 | History & Physicial ---
History of Present Illness History of Present Illness Reason for visit/HPI for surveillance colonoscopy. Date of Admission 12/04/18 Date Seen by a Provider: Dec 04, 2018 Time Seen by a Provider: 09:41 I consulted on this patient on 12/04/18 09:40 Attending Physician Rosalie Truong MD Admitting Physician Jesusita Gonzalez DO Consult Allergies and Home Medications Allergies Coded Allergies: rofecoxib (Verified Allergy, Unknown, TAKES ASPIRIN AT HOME, 09/29/15) Home Medications Allopurinol 300 Mg Tablet, 300 MG PO DAILY, (Reported) Atorvastatin Calcium 10 Mg Tablet, 10 MG PO DAILY, (Reported) Doxazosin Mesylate 8 Mg Tablet, 8 MG PO HS, (Reported) Esomeprazole Magnesium 40 Mg Capsule.dr, 40 MG PO BID, (Reported) Finasteride 5 Mg Tablet, 5 MG PO DAILY, (Reported) Levothyroxine Sodium 137 Mcg Tablet, 137 MCG PO DAILY, (Reported) Pentosan Polysulfate Sodium 100 Mg Capsule, 100 MG PO TID, (Reported) Triamterene/Hydrochlorothiazid 1 Each Tablet, 1 EACH PO DAILY, (Reported) Patient Home Medication List Home Medication List Reviewed: Yes Past Rkmgkoi-Zndljj-Rxhbrw Hx Patient Social History Employed/Student: retired Alcohol Use: Denies Use Recreational Drug Use: No Smoking Status: Former Smoker Former Smoker, Quit: Nov 27, 1980 2nd Hand Smoke Exposure: No Recent Foreign Travel: No Contact w/other who traveled: No Recent Hopitalizations: No Immunizations Up To Date Tetanus Booster (TDap): Unknown Date of Pneumonia Vaccine: Jul 24, 2015 Date of Influenza Vaccine: Jul 24, 2018 Seasonal Allergies Seasonal Allergies: No Surgeries Yes (kidney stones, knee scope) Appendectomy, Gallbladder Respiratory No Cardiovascular Yes Hypertension Neurological No Reproductive System Hx Reproductive Disorders: No Genitourinary Yes Kidney Stones Gastrointestinal Yes Gastroesophageal Reflux, Polyps Musculoskeletal Yes Arthritis Endocrine History of Endocrine Disorders: Yes Endocrine Disorders: Hypothyroidsim HEENT History of HEENT Disorders: No Cancer No Psychosocial History of Psychiatric Problem: No Integumentary History of Skin or Integumenta: No Blood Transfusions History of Blood Disorders: No Family Medical History Significant Family History: No Pertinent Family Hx Family Hx: Arthritis 19 MOTHER Cancer of female genital organ G8 SISTER Colon cancer requiring screening colonoscopy Diabetes mellitus G8 SISTER FH: breast cancer G8 SISTER FH: colon cancer 19 MOTHER FH: lymphoma 19 FATHER, Onset:60 years & older FH: rheumatic fever G8 SISTER Parkinson's disease 19 MOTHER, Onset:60 years & older Thyroid disease G8 SISTER Review of Systems Constitutional: no symptoms reported EENTM: no symptoms reported Respiratory: no symptoms reported Cardiovascular: no symptoms reported Gastrointestinal: no symptoms reported Genitourinary: no symptoms reported Musculoskeletal: no symptoms reported Skin: no symptoms reported Psychiatric/Neurological: No Symptoms Reported Physical Exam Vital Signs Vital Signs - First Documented 12/04/18 08:45 Temp 98.4 Pulse 87 Resp 20 B/P (MAP) 147/78 (101) Pulse Ox 98 O2 Delivery Room Air Capillary Refill : Height, Weight, BMI Height: 6'2.00" Weight: 229lbs. 0.0oz. [id number]; 29.4 BMI Method:Stated General Appearance: No Apparent Distress Neck: Normal Inspection Respiratory: Lungs Clear Cardiovascular: Regular Rate, Rhythm Gastrointestinal: Non Tender, Soft Rectal: Deferred Extremity: Normal Inspection Neurologic/Psychiatric: Alert, Oriented x3 Skin: Warm/Dry Assessment/Plan Assessment and Plan lady with a history of polyps. For surveillance colonoscopy. Admission Diagnosis Admission Status: Other (Outpt Proc) ROSALIE TRUONG MD Dec 04, 2018 09:41
--- NOTE | 2018-12-04 09:42 | Conscious Sedation/ASA ---
Conscious Sedation Pre-Proced Time 09:42 ASA Score 2 For ASA 3 and 4: Consider anesthesia and medical clearance. Also, for patients with a history of failed moderate sedation consider anesthesia. Airway Lungs Heart ASA score ASA 1: a normal healthy patient ASA 2: a patient with a mild systemic disease (mid diabetes, controlled hypertension, obesity ASA 3: a patient with a severe systemic disease that limits activity (angina , COPD, prior Myocardial infarction) ASA 4: a patient with an incapacitating disease that is a constant threat to life (CHF, renal failure) ASA 5: a moribund patient not expected to survive 24 hrs. (ruptured aneurysm) ASA 6: a declared brain- patient whose organs are being harvested. For emergent operations, add the letter E after the classification Mallampati Classification Grade 1 Sedation Plan Discussed options with patient/fam The patient is an appropriate candidate to undergo the planned procedure, sedation, and anesthesia. The patient immediately re-assessed prior to indication. ROSALIE ANGELO MD Dec 04, 2018 09:42
[2018-12-04] MEDS ORDERED: MIDAZOLAM 2 MG/2 ML (VERSED) VIAL ONE ×3 (10:29→10:30)
[2018-12-04] MEDS ORDERED: fentaNYL INJECTION 100 MCG/2 ML AMP ONE (10:30)
--- NOTE | 2018-12-04 11:00 | Endo Procedure Record ---
Endo Procedure Report Date of Procedure Last Colonoscopy: Yes Dec 04, 2018 Surgeon (s) ROSALIE ANGELO MD Post Procedure/Op Diagnosis very few sigmoid diverticulae Procedure Performed Colonoscopy to cecum Description of Procedure Anesthesia Type: Conscious Sedation Specimen(s) collected/removed None Description of the Procedure Indication for the procedure: this gentleman came in for surveillance colonoscopy. Informed consent was obtained after reviewing the procedure in detail. Description of the procedure: He was placed in left lateral decubitus position and his vital signs were monitored. Conscious sedation was achieved using Versed and fentanyl. Digital rectal examination was unremarkable. The colonoscope was then introduced into the rectum and advanced all the way up to the cecum. The quality of bowel preparation was excellent. The scope was then withdrawn slowly and the mucosa examined in a systematic fashion. Findings: A few sigmoid diverticulae. No recurrent polyps were found. He tolerated the procedure well and was taken back to the nursing area in a stable condition. Impression: Polyp surveillance. No recurrence. Recommend repeating in 5 years. Copy Copies To 1: TISHA KEARNEY XAVIER M MD Dec 04, 2018 11:00
--- NOTE | 2018-12-04 11:01 | Discharge Inst-Simple/Standard ---
Discharge Inst-Standard Discharge Medications New, Converted or Re-Newed RX: Other Patient Instructions/Follow Up Plan of Care/Instructions/FU: Repeat colonsocopy in 5 years Activity as Tolerated: Yes Discharge Diet: No Restrictions ROSALIE ANGELO MD Dec 04, 2018 11:01
[2018-12-04 11:05] VITALS: BP 107/58
[2018-12-04 11:30] VITALS: BP 110/66
[2018-12-04 11:35] VITALS: BP 110/66
== END 2018-12-04 11:35 | disposition home or self-care (01) ==
LOC: ENDO 08:32
PROVIDERS: ATTEND Surgery
DX: Z12.11 Encounter for screening for malignant neoplasm of colon (principal); K57.30 Diverticulosis of large intestine without perforation or abscess without bleeding; Z86.010 Personal history of colon polyps; I10 Essential (primary) hypertension; E03.9 Hypothyroidism, unspecified; K21.9 Gastro-esophageal reflux disease without esophagitis; Z87.891 Personal history of nicotine dependence; Z79.899 Other long term (current) drug therapy

== ENCOUNTER → 2019-01-30 | Outpatient (CLI) | payer MEDICARE, OTHER ==
--- NOTE | 2019-01-30 14:32 | Diagnostic Imaging Report ---
INDICATION: Shortness of breath. PA and lateral chest. Heart size and pulmonary vascularity are normal. Lungs are clear. There are no effusions or pneumothoraces. IMPRESSION: Negative chest. Dictated by: Dictated on workstation # [id number]
== END ==
LOC: RAD 13:54
PROVIDERS: ATTEND Family Medicine
DX: R06.02 Shortness of breath (principal); R05 Cough
CPT/HCPCS: 71046

== ENCOUNTER → 2019-05-02 | Outpatient (CLI) | payer MEDICARE, OTHER ==
--- NOTE | 2019-05-02 14:34 | Diagnostic Imaging Report ---
EXAMINATION: Chest, 2 views. HISTORY: Left-sided axillary pain. COMPARISON: 01/30/2019. FINDINGS: The lungs are clear. No edema. No pneumonia. No pleural effusion. No pneumothorax. The heart is normal in size. IMPRESSION: Clear lungs. Dictated by: Dictated on workstation # [id number]
== END ==
LOC: RAD 14:14
PROVIDERS: ATTEND Nurse Practitioner Family
DX: M79.622 Pain in left upper arm (principal); R07.9 Chest pain, unspecified
CPT/HCPCS: 71046

== ENCOUNTER 2019-06-06 15:24 | Inpatient (IN) | payer MEDICARE, OTHER ==
[~2019-06-06] VITALS: Ht 188 cm; Wt 101.3 kg
[2019-06-06] MEDS ORDERED: IOHEXOL 350 MG/ML 150 ML (OMNIPAQUE 350) VIAL IV ONE (16:15)
[2019-06-06] MEDS ORDERED: HOLD METFORMIN - RECEIVED CONTRAST 20 ML VIAL IV SCH (16:15)
[2019-06-06] MEDS ORDERED: NS 100 ML (IVPB) BAG IV ONE (16:15)
[2019-06-06] MEDS ORDERED: PATIENT MAY USE OWN MEDS, ALL PO SCH (16:30)
[2019-06-06] MEDS ORDERED: ENOXAPARIN 100 MG/1 ML (LOVENOX) SYR SC NR (16:30)
[2019-06-06 16:43] VITALS: BP 153/65
[2019-06-06 16:49] LABS: BASOPHILS % (AUTO) 0 % (0-10); EOSINOPHILS # (AUTO) 0.1 10^3/uL (0.0-0.3); EOSINOPHILS % (AUTO) 1 % (0-10); HEMATOCRIT 35 % (40-54); HEMOGLOBIN 11.6 G/DL (13.3-17.7); LYMPHOCYTES # (AUTO) 2.4 X 10^3 (1.0-4.0); LYMPHOCYTES % (AUTO) 28 % (12-44); MEAN CORPUSCULAR HEMOGLOBIN 28 PG (25-34); MEAN CORPUSCULAR HGB CONC 33 G/DL (32-36); MEAN CORPUSCULAR VOLUME 85 FL (80-99); MEAN PLATELET VOLUME 9.2 FL (7.4-10.4); MONOCYTES # (AUTO) 0.9 X 10^3 (0.0-1.0); MONOCYTES % (AUTO) 10 % (0-12); NEUTROPHILS # (AUTO) 5.2 X 10^3 (1.8-7.8); NEUTROPHILS % (AUTO) 61 % (42-75); PLATELET COUNT 214 10^3/uL (130-400); RED CELL DISTRIBUTION WIDTH 14.3 % (10.0-14.5); WHITE BLOOD COUNT 8.5 10^3/uL (4.3-11.0)
--- NOTE | 2019-06-06 16:52 | Diagnostic Imaging Report ---
PROCEDURE: CT angiography of the chest with contrast. TECHNIQUE: Multiple contiguous axial images were obtained through the chest after uneventful bolus administration of intravenous contrast. 3D reconstructed CTA MIP acquisitions were also performed. Auto Exposure Controls were utilized during the CT exam to meet ALARA standards for radiation dose reduction. INDICATION: Lower extremity DVT. COMPARISON: 09/22/2015. FINDINGS: There are large bilateral pulmonary emboli involving the right and left pulmonary arteries and extending into the submental vessels of the lower lobes and right middle lobe. The right heart is dilated with reflux of contrast into the inferior vena cava and giving right heart strain. No pericardial effusion. The aorta is normal in caliber. No axillary, supraclavicular, or mediastinal lymphadenopathy. Limited views of the upper abdomen are unremarkable. The lungs are clear without edema or pneumonia. No pleural effusion or pneumothorax. No suspicious pulmonary nodules. IMPRESSION: 1. Extensive bilateral pulmonary emboli with CT evidence of right heart strain. 2. The findings were communicated to Dr. Gonzalez by Dr. Rolon on 06/06/2019 at 4:45 PM. Dictated by: Dictated on workstation # [id number]
[2019-06-06 16:53] VITALS: BP 153/65
[2019-06-06 17:03] LABS: INR 0.9 (0.8-1.4)
[2019-06-06 17:08] LABS: ALBUMIN 3.6 GM/DL (3.2-4.5); BILIRUBIN,TOTAL 0.5 MG/DL (0.1-1.0); CALCIUM 9.1 MG/DL (8.5-10.1); CREATININE SERUM 1.24 MG/DL (0.60-1.30); TOTAL PROTEIN 6.6 GM/DL (6.4-8.2)
--- NOTE | 2019-06-06 17:12 | NUR ---
KAYLA WINTER Emma admitted to room 422-1, with an admitting diagnosis of DVT right leg, on 06/06/19 from via home. KAYLA WINTER introduced to surroundings, call light, bed controls, phone, TV, temperature control, lights, meal times, smoking policy, visitor policy, side rail policy, bathrooms and showers. Patient Rights given to patient in the handbook. KAYLA WINTER verbalizes understanding that [facility] is not responsible for the loss or damage to any personal effects or valuables that are kept in the patients possession during their hospitalization. The following Patient Care Plans were discussed with the patient: Discharge Planning, medications, pain management, and dehydration. KAYLA WINTER verbalizes understanding of Interdisciplinary Patient Education. Patient and/or family were informed about the Rapid Response Team and its purpose.
[2019-06-06] MEDS ORDERED: ACETAMINOPHEN 325 MG TABLET PO PRN (17:15)
--- NOTE | 2019-06-06 18:19 | NUR ---
Ndt Inspector notified of echo that is ordered.
--- NOTE | 2019-06-06 19:23 | Consultation-Cardiology ---
HPI-Cardiology Cardiology Consultation Date of Consultation 06/06/19 Date of Admission Time Seen by Provider: 19:21 Indication: Pulmonary embolism HPI 74 years old gentleman with history of hypertension, was in his usual state of health until earlier test week when he started having pain and discomfort in his right thigh, workup showed deep venous thrombosis and bilateral pulmonary embolism. No recent traveling. No chest pain but have mild dyspnea, no syncope or near syncopal episodes. No claudications. Home Medications & Allergies Allergies: Coded Allergies: rofecoxib (Verified Allergy, Unknown, TAKES ASPIRIN AT HOME, 09/29/15) Home Medication List Reviewed: Yes RPH-Vwiynq-Ndyjmw Hx Patient Social History Marital Status: Employed/Student: retired Alcohol Use: Denies Use Recreational Drug Use: No Former smoker/When Quit: February 21, 1981 2nd Hand Smoke Exposure: No Recent Foreign Travel: No Recent Infectious Disease Expo: No Recent Hopitalizations: No Physical Abuse Screen: No Sexual Abuse: No Immunizations Up To Date Tetanus Booster (TDap): Unknown Date of Pneumonia Vaccine: Jul 24, 2015 Date of Influenza Vaccine: Jul 24, 2018 Past Medical History Discussed below Family Medical History Significant Family History: No Pertinent Family Hx Family History: Arthritis 19 MOTHER Cancer of female genital organ G8 SISTER Colon cancer requiring screening colonoscopy Diabetes mellitus G8 SISTER FH: breast cancer G8 SISTER FH: colon cancer 19 MOTHER FH: lymphoma 19 FATHER, Onset:60 years & older FH: rheumatic fever G8 SISTER Parkinson's disease 19 MOTHER, Onset:60 years & older Thyroid disease G8 SISTER Review of Systems-General Review of Systems Constitutional: see HPI EENTM: see HPI, no symptoms reported Respiratory: see HPI; No cough; dyspnea on exertion; No hemoptysis, No orthopnea, No phlegm, No short of breath, No stridor, No wheezing, No other Cardiovascular: see HPI; No chest pain, No edema, No Hx of Intervention, No palpitations, No syncope, No vascular heart diseas, No other Gastrointestinal: no symptoms reported, see HPI Genitourinary: no symptoms reported, see HPI Musculoskeletal: no symptoms reported, see HPI Skin: no symptoms reported, see HPI Psychiatric/Neurological: No Symptoms Reported, See HPI Reviewed Test Results Reviewed Test Results Lab Laboratory Tests Test 06/06/19 16:40 Range/Units White Blood Count 8.5 4.3-11.0 10^3/uL Red Blood Count 4.17 L 4.35-5.85 10^6/uL Hemoglobin 11.6 L 13.3-17.7 G/DL Hematocrit 35 L 40-54 % Mean Corpuscular Volume 85 80-99 FL Mean Corpuscular Hemoglobin 28 25-34 PG Mean Corpuscular Hemoglobin Concent 33 32-36 G/DL Red Cell Distribution Width 14.3 10.0-14.5 % Platelet Count 214 130-400 10^3/uL Mean Platelet Volume 9.2 7.4-10.4 FL Neutrophils (%) (Auto) 61 42-75 % Lymphocytes (%) (Auto) 28 12-44 % Monocytes (%) (Auto) 10 0-12 % Eosinophils (%) (Auto) 1 0-10 % Basophils (%) (Auto) 0 0-10 % Neutrophils # (Auto) 5.2 1.8-7.8 X 10^3 Lymphocytes # (Auto) 2.4 1.0-4.0 X 10^3 Monocytes # (Auto) 0.9 0.0-1.0 X 10^3 Eosinophils # (Auto) 0.1 0.0-0.3 10^3/uL Basophils # (Auto) 0.0 0.0-0.1 10^3/uL Prothrombin Time 13.0 12.2-14.7 SEC INR Comment 0.9 0.8-1.4 Activated Partial Thromboplast Time 30 24-35 SEC Sodium Level 135 135-145 MMOL/L Potassium Level 4.0 3.6-5.0 MMOL/L Chloride Level 101 98-107 MMOL/L Carbon Dioxide Level 27 21-32 MMOL/L Anion Gap 7 5-14 MMOL/L Blood Urea Nitrogen 23 H 7-18 MG/DL Creatinine 1.24 0.60-1.30 MG/DL Estimat Glomerular Filtration Rate 57 BUN/Creatinine Ratio 19 Glucose Level 112 H 70-105 MG/DL Calcium Level 9.1 8.5-10.1 MG/DL Corrected Calcium 9.4 8.5-10.1 MG/DL Total Bilirubin 0.5 0.1-1.0 MG/DL Aspartate Amino Transf (AST/SGOT) 15 5-34 U/L Alanine Aminotransferase (ALT/SGPT) 15 0-55 U/L Alkaline Phosphatase 81 40-136 U/L Total Protein 6.6 6.4-8.2 GM/DL Albumin 3.6 3.2-4.5 GM/DL Physical Exam Physical Exam Vital Signs Vital Signs - First Documented 06/06/19 16:43 Temp 98.3 Pulse 86 Resp 20 B/P (MAP) 153/65 Pulse Ox 99 O2 Delivery Room Air Capillary Refill : Height, Weight, BMI Height: 6'2.00" Weight: 226lbs. 1.0oz. 102.374239mj; 29.0 BMI Method:Stated General Appearance: No Apparent Distress, WD/WN Eyes: Bilateral Eye Normal Inspection, Bilateral Eye PERRL, Bilateral Eye EOMI HEENT: PERRL/EOMI, TMs Normal, Normal ENT Inspection, Pharynx Normal, Moist Mucous Membranes Neck: Full Range of Motion, Normal Inspection, Non Tender, Supple, Carotid Bruit Respiratory: Chest Non Tender, Normal Breath Sounds, No Accessory Muscle Use, No Respiratory Distress Cardiovascular: Regular Rate, Rhythm, No Edema, No Gallop, No JVD, No Murmur, Normal Peripheral Pulses Gastrointestinal: Normal Bowel Sounds, No Organomegaly, No Pulsatile Mass, Non Tender, Soft Back: Normal Inspection, No CVA Tenderness, No Vertebral Tenderness Extremity: Normal Capillary Refill, Normal Inspection, Normal Range of Motion, Non Tender, No Calf Tenderness, No Pedal Edema Neurologic/Psychiatric: Alert, Oriented x3, No Motor/Sensory Deficits, Normal Mood/Affect Skin: Normal Color, Warm/Dry Lymphatic: No Adenopathy A/P-Cardiology Admission Diagnosis DVT PE Hypertension Gastroesophageal reflux disease Assessment/Plan DVT/PE, unprovoked, started on Eliquis 10 mg twice daily for one week, I will evaluate 2-D echocardiogram, evaluate factor V Leiden. Continue to monitor Hypertension, monitor blood pressure Hyperlipidemia maintained on Lipitor Mild dyspnea secondary to pulmonary embolism Arthritis maintained on Celebrex Gastroesophageal reflux disease Clinical Quality Measures DVT/VTE Risk/Contraindication: Risk Factor Score Per Nursin RFS Level Per Nursing on Admit: 4+=Very High DIANDRA DAVIS MD Jun 06, 2019 19:23
[2019-06-06] MEDS: APIXABAN 5 MG (ELIQUIS) TABLET PO SCH (20:33)
[2019-06-06 20:36] VITALS: BP 119/66
--- NOTE | 2019-06-06 21:25 | History & Physicial ---
History of Present Illness History of Present Illness Reason for visit/HPI This is a 74 year old male who was seen in my office with a 3 day history of some mild pain and swelling in his right groin and thigh. He was sent for an US of his right leg and was found to have an extensive DVT. He did admit to some mild shortness of air so a CT angiogram was obtained which showed bilateral pulmonary emboli. He will be admitted and started on eliquis with pulmonology a nd cardiology consultation. Date of Admission Jun 06, 2019 at 15:48 Date Seen by a Provider: Jun 06, 2019 Time Seen by a Provider: 18:40 I consulted on this patient on 06/06/19 21:19 Attending Physician Jesusita Gonzalez DO Admitting Physician Jesusita Gonzalez DO Consult Allergies and Home Medications Allergies Coded Allergies: rofecoxib (Verified Allergy, Unknown, TAKES ASPIRIN AT HOME, 09/29/15) Home Medications Allopurinol 300 Mg Tablet, 300 MG PO DAILY, (Reported) Atorvastatin Calcium 10 Mg Tablet, 10 MG PO DAILY, (Reported) Doxazosin Mesylate 8 Mg Tablet, 8 MG PO HS, (Reported) Esomeprazole Magnesium 40 Mg Capsule.dr, 40 MG PO BID, (Reported) Finasteride 5 Mg Tablet, 5 MG PO DAILY, (Reported) Levothyroxine Sodium 137 Mcg Tablet, 137 MCG PO DAILY, (Reported) Pentosan Polysulfate Sodium 100 Mg Capsule, 100 MG PO TID, (Reported) Triamterene/Hydrochlorothiazid 1 Each Tablet, 1 EACH PO DAILY, (Reported) Patient Home Medication List Home Medication List Reviewed: Yes Past Xkuqtvh-Yzrlmx-Wgdwsg Hx Patient Social History Marrital Status: Employed/Student: retired Alcohol Use: Denies Use Recreational Drug Use: No Former Smoker, Quit: Nov 27, 1980 2nd Hand Smoke Exposure: No Physical Abuse Screen: No Sexual Abuse: No Recent Foreign Travel: No Contact w/other who traveled: No Recent Hopitalizations: No Recent Infectious Disease Expo: No Immunizations Up To Date Tetanus Booster (TDap): Unknown Date of Pneumonia Vaccine: Jul 24, 2015 Date of Influenza Vaccine: Jul 24, 2018 Seasonal Allergies Seasonal Allergies: Yes Surgeries Yes Appendectomy, Gallbladder Respiratory Yes Cardiovascular No Hypertension Neurological No Reproductive System Hx Reproductive Disorders: No Sexually Transmitted Disease: No HIV/AIDS: No Genitourinary Yes Kidney Stones Gastrointestinal No Gastroesophageal Reflux, Polyps Musculoskeletal No Arthritis Endocrine History of Endocrine Disorders: Yes Endocrine Disorders: Hypothyroidsim HEENT History of HEENT Disorders: Yes HEENT Disorders: Cataract Cancer Yes Skin Did You Recieve Any Treatments: Yes Type of Treatment: Surgical Intervention Psychosocial History of Psychiatric Problem: No Integumentary History of Skin or Integumenta: No Blood Transfusions History of Blood Disorders: No Adverse Reaction to a Blood Tr: No Family Medical History Significant Family History: No Pertinent Family Hx Family Hx: Arthritis 19 MOTHER Cancer of female genital organ G8 SISTER Colon cancer requiring screening colonoscopy Diabetes mellitus G8 SISTER FH: breast cancer G8 SISTER FH: colon cancer 19 MOTHER FH: lymphoma 19 FATHER, Onset:60 years & older FH: rheumatic fever G8 SISTER Parkinson's disease 19 MOTHER, Onset:60 years & older Thyroid disease G8 SISTER Review of Systems Constitutional: weakness EENTM: No see HPI, No no symptoms reported, No ear discharge, No hearing loss, No ear pain, No blurred vision, No double vision, No eye pain, No tearing, No vision loss, No dental problems, No hoarseness, No mouth pain, No mouth swelling, No epistaxis, No nose congestion, No nose pain, No throat pain, No throat swelling, No other Respiratory: cough, short of breath Cardiovascular: No no symptoms reported, No see HPI, No chest pain, No edema, No Hx of Intervention, No palpitations, No syncope, No vascular heart diseas, No other Gastrointestinal: No RUQ, No LUQ, No RLQ, No LLQ, No no symptoms reported, No see HPI, No abdominal pain, No constipation, No diarrhea, No dysphagia, No hematemesis, No heartburn, No jaundice, No loss of appetite, No melena, No nausea, No vomiting, No other Genitourinary: No no symptoms reported, No see HPI, No decreased output, No discharge, No dysuria, No frequency, No hematuria, No hesitancy, No incontinence, No nocturia, No pain, No other Musculoskeletal: joint pain (right groin and upper thigh) Skin: no symptoms reported Psychiatric/Neurological: No Symptoms Reported Physical Exam Vital Signs Vital Signs - First Documented 06/06/19 16:43 Temp 98.3 Pulse 86 Resp 20 B/P (MAP) 153/65 Pulse Ox 99 O2 Delivery Room Air Capillary Refill : Height, Weight, BMI Height: 6'2.00" Weight: 226lbs. 1.0oz. 102.832180rh; 29.0 BMI Method:Stated General Appearance: No Apparent Distress HEENT: Normal ENT Inspection Neck: Supple Respiratory: Lungs Clear Cardiovascular: Regular Rate, Rhythm, Systolic Murmur Gastrointestinal: Normal Bowel Sounds, Non Tender, Soft Rectal: Deferred Back: No CVA Tenderness Extremity: Non Tender, No Calf Tenderness, No Pedal Edema Neurologic/Psychiatric: Alert, Oriented x3 Skin: Warm/Dry Comments Laboratory Tests 06/06/19 16:40: White Blood Count 8.5, Red Blood Count 4.17L, Hemoglobin 11.6L, Hematocrit 35L, Mean Corpuscular Volume 85, Mean Corpuscular Hemoglobin 28, Mean Corpuscular Hemoglobin Concent 33, Red Cell Distribution Width 14.3, Platelet Count 214, Mean Platelet Volume 9.2, Neutrophils (%) (Auto) 61, Lymphocytes (%) (Auto) 28, Monocytes (%) (Auto) 10, Eosinophils (%) (Auto) 1, Basophils (%) (Auto) 0, Neutrophils # (Auto) 5.2, Lymphocytes # (Auto) 2.4, Monocytes # (Auto) 0.9, Eosinophils # (Auto) 0.1, Basophils # (Auto) 0.0, Prothrombin Time 13.0, INR Comment 0.9, Activated Partial Thromboplast Time 30, Sodium Level 135, Potassium Level 4.0, Chloride Level 101, Carbon Dioxide Level 27, Anion Gap 7, Blood Urea Nitrogen 23H, Creatinine 1.24, Estimat Glomerular Filtration Rate 57, BUN/Creatinine Ratio 19, Glucose Level 112H, Calcium Level 9.1, Corrected Calcium 9.4, Total Bilirubin 0.5, Aspartate Amino Transf (AST/SGOT) 15, Alanine Aminotransferase (ALT/SGPT) 15, Alkaline Phosphatase 81, Total Protein 6.6, Albumin 3.6 Assessment/Plan Assessment and Plan 1. Acute Right LE DVT with Acute Bilateral Pulmonary Emboli--given one dose of lovenox and will start eliquis 10mg po BID, Check 2-D ECHO and have cardiology assess 2. Hypertension--resume home medications 3. Allergic Rhinitis--recent exacerbation 4. GERD--restart protonix Admission Diagnosis Admission Status: Inpatient Order (span 2 midnights) Reason for Inpatient Admission: Will need monitored at least 2 days for hypoxia and will need further workup for the DVT/PE Clinical Quality Measures DVT/VTE Risk/Contraindication: Risk Factor Score Per Nursin RFS Level Per Nursing on Admit: 4+=Very High JESUSITA GONZALEZ DO Jun 06, 2019 21:25
[2019-06-06] MEDS ORDERED: PANTOPRAZOLE 40 MG (PROTONIX) TAB PO ONE (21:30)
[2019-06-07 00:10] VITALS: BP 101/60
[2019-06-07 04:00] VITALS: BP 123/69
[2019-06-07 05:17] LABS: HEMOGLOBIN 11.4 G/DL (13.3-17.7); MEAN PLATELET VOLUME 10.1 FL (7.4-10.4); RED CELL DISTRIBUTION WIDTH 14.3 % (10.0-14.5); WHITE BLOOD COUNT 8.9 10^3/uL (4.3-11.0)
[2019-06-07 05:49] LABS: ALBUMIN 3.5 GM/DL (3.2-4.5); BILIRUBIN,TOTAL 0.5 MG/DL (0.1-1.0); CALCIUM 9.2 MG/DL (8.5-10.1); CREATININE SERUM 1.25 MG/DL (0.60-1.30); POTASSIUM 4.3 MMOL/L (3.6-5.0); TOTAL PROTEIN 6.4 GM/DL (6.4-8.2)
--- NOTE | 2019-06-07 06:56 | Cardiology Progress Note ---
Subjective Date Seen by Provider: Jun 07, 2019 Time Seen by Provider: 06:55 Subjective/Events-last exam patient is laying down in bed, feeling well, complaining of mild cough, no shortness of breath. Review of Systems General: No Chills, No Night Sweats, No Fatigue, No Malaise, No Appetite, No Other HEENT: No Head Aches, No Visual Changes, No Eye Pain, No Ear Pain, No Dysphasia, No Sinus Congestion, No Post Nasal Drip, No Sore Throat, No Other Pulmonary: No Dyspnea, No Cough, No Pleuritic Chest Pain, No Other Cardiovascular: No: Chest Pain, Palpitations, Orthopnea, Paroxysmal Noc. Dyspnea, Edema, Lt Headedness, Other Objective-Cardiology Exam Last Set of Vital Signs Vital Signs 06/07/19 04:00 Temp 98.9 Pulse 67 Resp 18 B/P (MAP) 123/69 (87) Pulse Ox 98 O2 Delivery Room Air Capillary Refill : I&O Intake and Output 06/06/19 23:59 Intake Total 960 ml Output Total 700 ml Balance 260 ml Intake Oral 960 ml Output Urine Total 700 ml Daily Weight Change No No General: Alert, Oriented X3, Cooperative HEENT: Atraumatic, PERRLA Neck: Supple, No JVD, No Thyromegaly Lungs: Clear to Auscultation, Normal Air Movement Heart: Regular Rate, Normal S1, Normal S2, No Murmurs Abdomen: Normal Bowel Sounds, Soft, No Tenderness, No Hepatosplenomegaly, No Masses Extremities: No Clubbing, No Cyanosis, No Edema, Normal Pulses, No Tenderness/Swelling Skin: No Rashes, No Breakdown, No Significant Lesion Neuro: Normal Gait, Normal Speech, Strength at 5/5 X4 Ext, Normal Tone, Sensation Intact Psych/Mental Status: Mental Status NL, Mood NL Results Lab Laboratory Tests 06/06/19 16:40 06/07/19 04:30 A/P-Cardiology Admission Diagnosis DVT PE Hypertension Gastroesophageal reflux disease Assessment/Plan DVT/PE, unprovoked, started on Eliquis 10 mg twice daily for one week, I will evaluate 2-D echocardiogram, evaluate factor V Leiden. okay for discharge after having the echo done Hypertension, monitor blood pressure Hyperlipidemia maintained on Lipitor Mild dyspnea secondary to pulmonary embolism Arthritis maintained on Celebrex Gastroesophageal reflux disease Clinical Quality Measures DVT/VTE Risk/Contraindication: Risk Factor Score Per Nursin RFS Level Per Nursing on Admit: 4+=Very High DIANDRA DAVIS MD Jun 07, 2019 06:56
[2019-06-07] MEDS ORDERED: PANTOPRAZOLE 40 MG (PROTONIX) TAB PO SCH ×2 (07:00→09:00)
[2019-06-07 08:00] VITALS: BP 120/65
[2019-06-07] MEDS ORDERED: LEVO137T32 PO (09:09)
[2019-06-07] MEDS ORDERED: MOME13HF INH (09:09)
[2019-06-07] MEDS ORDERED: ALBU2.5V4 NEB (09:09)
[2019-06-07] MEDS ORDERED: HYDR-3820 PO (09:09)
[2019-06-07] MEDS ORDERED: CELE-63 PO (09:09)
[2019-06-07] MEDS ORDERED: DOXE6TAB3 PO (09:09)
[2019-06-07] MEDS ORDERED: GLUC1CAP37 PO (09:15)
[2019-06-07] MEDS ORDERED: CETI10TA20 PO (09:15)
--- NOTE | 2019-06-07 09:15 | NUR ---
PATIENT HAD HIS PILL HOSPITAL STAFF PHARMACIST WITH HIM AND WAS ABLE TO LIST HIS MEDICATIONS BY LOOKING AT HIS TABLETS. I VERIFIED WITH THE EXT MED HX. HIS NEXIUM IS PRESCRIBED BID HOWEVER HE STATES IT HAS BEEN DECREASED TO ONCE DAILY IN THE MORNING. HE TAKES ZYRTEC DAILY AND GLUCOSAMINE AND CHONDROITIN DAILY OTC.
[2019-06-07] MEDS: APIXABAN 5 MG (ELIQUIS) TABLET PO SCH (09:19)
--- NOTE | 2019-06-07 11:43 | Pulmonary Consultation ---
History of Present Illness History of Present Illness Date of Consultation 06/07/19 11:41 Date of Admission Reason for Visit: Pulmonary embolism Allergies and Home Medications Allergies Coded Allergies: rofecoxib (Verified Allergy, Unknown, TAKES ASPIRIN AT HOME, 09/29/15) Home Medications Albuterol Sulfate 2.5 Mg/3 Ml Vial.neb, 2.5 MG NEB Q4H PRN for SHORTNESS OF BREATH, (Reported) Allopurinol 300 Mg Tablet, 300 MG PO DAILY, (Reported) Celecoxib 200 Mg Capsule, 200 MG PO DAILY, (Reported) Cetirizine HCl 10 Mg Tablet, 10 MG PO DAILY, (Reported) Doxazosin Mesylate 8 Mg Tablet, 8 MG PO HS, (Reported) Doxepin HCl 6 Mg Tablet, 6 MG PO DAILY PRN for SLEEP, (Reported) Esomeprazole Magnesium 40 Mg Capsule.dr, 40 MG PO DAILY, (Reported) Finasteride 5 Mg Tablet, 5 MG PO DAILY, (Reported) Glucosa Borges 2Kcl/Chondroitin Borges 1 Each Capsule, 1 CAP PO DAILY, (Reported) Hydrocodone/Acetaminophen 1 Each Tablet, 1 TAB PO Q6H PRN for PAIN-MODERATE, (Reported) Levothyroxine Sodium 137 Mcg Tablet, 137 MCG PO DAILY, (Reported) Mometasone/Formoterol 13 Gm Hfa.aer.ad, 2 PUFF INH BID, (Reported) Pentosan Polysulfate Sodium 100 Mg Capsule, 100 MG PO TID, (Reported) Triamterene/Hydrochlorothiazid 1 Each Tablet, 1 TAB PO DAILY, (Reported) Past Aehdqrq-Ezpuxr-Uzvptk Hx Patient Social History Alcohol Use: Denies Use Recreational Drug Use: No Former Smoker, Quit: Nov 27, 1980 2nd Hand Smoke Exposure: No Recent Foreign Travel: No Contact w/Someone Who Travel: No Recent Infectious Disease Expo: No Recent Hopitalizations: No Immunizations Up To Date Tetanus Booster (TDap): Unknown Date of Pneumonia Vaccine: Jul 24, 2015 Date of Influenza Vaccine: Jul 24, 2018 Seasonal Allergies Seasonal Allergies: Yes Past Medical History Surgeries: Yes Appendectomy, Gallbladder Respiratory: Yes Chronic Bronchitis Cardiac: No Hypertension Neurological: No Reproductive Disorders: No Sexually Transmitted Disease: No HIV/AIDS: No Genitourinary: Yes Kidney Stones Gastrointestinal: No Gastroesophageal Reflux, Polyps Musculoskeletal: No Arthritis Endocrine: Yes Hypothyroidsim HEENT: Yes Cataract Cancer: Yes Skin Did You Recieve Any Treatments: Yes What Type of Treatment Did You: Surgical Intervention Psychosocial: No Integumentary: No Blood Disorders: No Adverse Reaction/Blood Tranf: No Family Medical History Arthritis 19 MOTHER Cancer of female genital organ G8 SISTER Colon cancer requiring screening colonoscopy Diabetes mellitus G8 SISTER FH: breast cancer G8 SISTER FH: colon cancer 19 MOTHER FH: lymphoma 19 FATHER, Onset:60 years & older FH: rheumatic fever G8 SISTER Parkinson's disease 19 MOTHER, Onset:60 years & older Thyroid disease G8 SISTER No Pertinent Family Hx Sepsis Event Evaluation Height, Weight, BMI Height: 6'2.00" Weight: 223lbs. 5.0oz. 101.529063om; 29.0 BMI Method:Stated Exam Exam Vital Signs Date Time Temp Pulse Resp B/P (MAP) Pulse Ox O2 Delivery O2 Flow Rate FiO2 06/07/19 08:00 98.3 72 18 120/65 (83) 99 Room Air 06/07/19 08:00 98 Room Air 06/07/19 07:00 74 06/07/19 04:00 98.9 67 18 123/69 (87) 98 Room Air 06/07/19 01:00 73 06/07/19 00:10 97.6 71 18 101/60 (74) 99 Room Air 06/06/19 20:36 98.7 88 18 119/66 (83) 95 Room Air 06/06/19 20:00 Room Air 06/06/19 19:00 97 06/06/19 17:43 88 06/06/19 16:53 98.3 86 20 153/65 (94) 99 Room Air 06/06/19 16:45 Room Air 06/06/19 16:43 98.3 86 20 153/65 99 Room Air I & O 06/07/19 07:00 Intake Total 1360 ml Output Total 1600 ml Balance -240 ml Height & Weight Height: 6'2.00" Weight: 223lbs. 5.0oz. 101.999760cf; 29.0 BMI Method:Stated General Appearance: No Apparent Distress HEENT: Normal ENT Inspection Neck: Supple Respiratory: Lungs Clear Cardiovascular: Regular Rate, Rhythm, Systolic Murmur Capillary Refill: Less Than 3 Seconds Extremity: Non Tender, No Calf Tenderness, No Pedal Edema Neurologic/Psychiatric: Alert, Oriented x3 Skin: Warm/Dry Lymphatic: No Adenopathy Results Lab Laboratory Tests 06/06/19 16:40 06/07/19 04:30 Assessment/Plan Assessment/Plan Acute bilateral PE/DVT -Eliquis - Continue HTN Allergic rhinitis GERD LILIAM JAFFE DO Jun 07, 2019 11:43
[2019-06-07 12:00] VITALS: BP 111/71
[2019-06-07] MEDS ORDERED: APIX5TAB PO (14:00)
--- NOTE | 2019-06-07 14:25 | NUR ---
Initial visit with pt (Santos) and his Julia. Both shared that in the last year they had complications involving blood clots. They are [employer] and affiliated with the [employer] in [place] because they have family ministering there. They welcomed prayer and we thanked God for his protection for them both. The pt anticipates possible discharge today.
--- NOTE | 2019-06-07 15:35 | Discharge Inst-Simple/Standard ---
Discharge Inst-Standard Reconcile Patient Problems Problems Reviewed?: Yes Discharge Medications New, Converted or Re-Newed RX: Transmitted to Pharmacy Patient Instructions/Follow Up Plan of Care/Instructions/FU: Fwup with me in 1 week Activity as Tolerated: Yes Discharge Diet: Cardiac Diet TISHA KEARNEY DO Jun 07, 2019 15:35
--- NOTE | 2019-06-08 12:30 | Physician Query-Final Dx ---
WILL ALMANZA 06/08/19 1230: Final Diagnosis Give Final Diagnosis Please give Final Diagnosis TISHA KEARNEY DO 06/12/19 1832: Final Diagnosis Give Final Diagnosis See WILL DIAS Jun 08, 2019 12:30 TISHA KEARNEY DO Jun 12, 2019 18:32
--- NOTE | 2019-06-12 18:43 | Discharge Summary ---
Diagnosis/Chief Complaint Date of Admission Jun 06, 2019 at 15:48 Date of Discharge Jun 07, 2019 at 16:04 Discharge Date: Jun 07, 2019 Discharge Diagnosis 1. Acute Bilateral Pulmonary Emboli--stable on eliquis 2. Acute Right Lower Extremity Deep Venous Thombosis--stable on eliquis 3. Hypertension--stable 4. GERD--stable Reason Hospital Visit This is a 74 year old male who was seen in my office with a 3 day history of some mild pain and swelling in his right groin and thigh. He was sent for an US of his right leg and was found to have an extensive DVT. He did admit to some mild shortness of air so a CT angiogram was obtained which showed bilateral pulmonary emboli. He will be admitted and started on eliquis with pulmonology and cardiology consultation. Discharge Summary Hospital Course Hospital Course This is a 74 year old male who was seen in my office with a 3 day history of some mild pain and swelling in his right groin and thigh. He was sent for an US of his right leg and was found to have an extensive DVT. He did admit to some mild shortness of air so a CT angiogram was obtained which showed bilateral pulmonary emboli. He was admitted to the medical floor as he was medically stable. He was givne a dose of lovenox on admission and then started on eliquis. Pulmonology and cardiology were consulted. His echocardiogram showed no clots or significant abnormalities. He did not require any oxygen during his hospital stay and was up ambulating in the halls with only minimal discomfort in his right upper thigh area. Since he was doing so well it was decided he could be discharged home on eliquis. He will follow up with me in my office in 1 week. Procedures None. Consultations Dr. Reyna Dorsey Discharge Physical Examination Allergies: Coded Allergies: rofecoxib (Verified Allergy, Unknown, TAKES ASPIRIN AT HOME, 09/29/15) Vitals & I&Os Vital Signs Date Time Temp Pulse Resp B/P (MAP) Pulse Ox O2 Delivery O2 Flow Rate FiO2 06/07/19 12:50 96 06/07/19 12:00 98.0 18 111/71 (84) 98 Room Air General Appearance: Alert, Oriented X3, Cooperative, No Acute Distress Respiratory: Clear to Auscultation Cardiovascular: Regular Rate Abdominal: Normal Bowel Sounds, Soft, No Tenderness Extremities: No Clubbing, No Cyanosis, No Edema Skin: No Rashes Neuro: Normal Gait, Normal Speech Psych/Mental Status: Mental Status NL, Mood NL Discharge Home Medications Reviewed and agree with Discharge Medication list on patient's Discharge Instruction sheet Instructions to Patient/Family Please see electronic discharge instructions given to patient. Clinical Quality Measures DVT/VTE Risk/Contraindication: Risk Factor Score Per Nursin RFS Level Per Nursing on Admit: 4+=Very High TISHA KEARNEY DO Jun 12, 2019 18:43
[2019-06-13] MEDS ORDERED: APIXABAN 5 MG (ELIQUIS) TABLET PO SCH (21:00)
== END 2019-06-07 16:04 | disposition home or self-care (01) | DRG 299 ==
LOC: 4TH 15:48
PROVIDERS: ADMIT Family Medicine; ATTEND Family Medicine
DX: I82.4Y1 Acute embolism and thrombosis of unspecified deep veins of right proximal lower extremity (principal); I26.99 Other pulmonary embolism without acute cor pulmonale; J42 Unspecified chronic bronchitis; J30.9 Allergic rhinitis, unspecified; I10 Essential (primary) hypertension; E78.5 Hyperlipidemia, unspecified; E03.9 Hypothyroidism, unspecified; K21.9 Gastro-esophageal reflux disease without esophagitis; M19.91 Primary osteoarthritis, unspecified site; Z87.891 Personal history of nicotine dependence; Z86.010 Personal history of colon polyps; Z87.442 Personal history of urinary calculi; Z85.828 Personal history of other malignant neoplasm of skin
CPT/HCPCS: 36415; 71275; 80053; 80061; 81241; 85025; 85027; 85610; 85730; 93306; 94664

== ENCOUNTER → 2019-09-28 | Outpatient (CLI) | payer MEDICARE, OTHER ==
[~2019-09-28] MED LIST changes: +ALBU2.5V4 NEB; +APIX5TAB PO; +CETI10TA20 PO; +GLUC1CAP37 PO; +LEVO137T32 PO; +MOME13HF INH
--- NOTE | 2019-09-28 16:31 | Diagnostic Imaging Report ---
INDICATION: Right upper thigh pain. TECHNIQUE: Grayscale with color-flow and Doppler waveform evaluation of the right lower extremity deep venous system. CORRELATION STUDY: 06/06/2019. FINDINGS: Previous study of 06/06/2019 demonstrated extensive right lower extremity clot to be present throughout the majority of the right lower extremity deep venous system. On follow-up, there is again demonstration of rather extensive clot to be present. This originates within the calf extending more centrally through the popliteal vein and onto the central aspect of the femoral vein in the thigh. There is some vascular flow noted more peripherally within the posterior tibial veins. Some generalized soft tissue edema is present. IMPRESSION: 1. Findings remain positive for rather extensive right lower extremity deep venous thrombosis. This originates within the calf and extends more centrally through the thigh. Indeterminate how much of this is chronic versus a potential new clot. Dictated by: Dictated on workstation # [id number]
== END ==
LOC: RAD 11:46
PROVIDERS: ATTEND Family Medicine
DX: I82.401 Acute embolism and thrombosis of unspecified deep veins of right lower extremity (principal)

== ENCOUNTER 2020-05-27 05:32 | Outpatient (RCR) | payer MEDICARE, OTHER ==
[2020-05-26 14:45] VITALS: BP 138/76
[~2020-05-27] VITALS: Ht 187.9 cm; Wt 104.4 kg
[~2020-05-27 05:32] MED LIST changes: +ACHYD1T PO; -CETI10TA20 PO; +CETI10TA21 PO; -HYDR-3820 PO; +LEVO125T6 PO
== END 2020-05-27 09:04 | disposition home or self-care (01) ==
LOC: PREOP 05:32
PROVIDERS: ATTEND Otolaryngology Otolaryngology/Facial Plastic Surgery
DX: Z01.812 Encounter for preprocedural laboratory examination (principal); Z01.810 Encounter for preprocedural cardiovascular examination; J34.89 Other specified disorders of nose and nasal sinuses; Z11.2 Encounter for screening for other bacterial diseases; Z20.828 Contact with and (suspected) exposure to other viral communicable diseases; Z79.01 Long term (current) use of anticoagulants
CPT/HCPCS: 87081; 87635; 93005

== ENCOUNTER 2020-05-29 06:02 | Day surgery (SDC) | payer MEDICARE, OTHER ==
[2020-05-29] VITALS (13 sets, daily range): BP systolic 109–134; BP diastolic 55–79
[~2020-05-29] VITALS: Ht 187.9 cm; Wt 104.4 kg
[2020-05-29] MEDS ORDERED: LACTATED RINGERS 1,000 ML IV PRN (06:32)
[2020-05-29] MEDS ORDERED: proPOfol 200 MG/20 ML (DIPRIVAN) VIAL IV ONE (06:50)
[2020-05-29] MEDS ORDERED: MIDAZOLAM 2 MG/2 ML (VERSED) VIAL ONE (06:51)
[2020-05-29] MEDS ORDERED: fentaNYL INJECTION 100 MCG/2 ML AMP ONE (06:51)
[2020-05-29] MEDS ORDERED: LIDOCAINE/EPI 1%-1:200,000 (XYLOCAINE) 30 ML VIAL ONE (06:54)
[2020-05-29] MEDS ORDERED: LIDOCAINE/EPI 1%-1:100,000 (XYLOCAINE) 20ML ONE (06:54)
[2020-05-29] MEDS ORDERED: DESFLURANE (SUPRANE) 15 ML INHAL SOLN ONE (06:57)
[2020-05-29] MEDS ORDERED: ONDANSETRON 4 MG/2 ML (SDV) Z0FRAN ONE (06:58)
[2020-05-29] MEDS ORDERED: NEOSTIGMINE 3 MG/3 ML VIAL ONE (06:59)
[2020-05-29] MEDS ORDERED: ROCURONIUM 10 MG/ML 5 ML SYRINGE IV ONE (06:59)
[2020-05-29] MEDS ORDERED: GLYCOPYRROLATE 0.2 MG/ML (ROBINUL) 2 ML VIAL ONE ×2 (06:59→08:09)
[2020-05-29] MEDS ORDERED: ENOX30DI9 SQ (07:00)
[2020-05-29] MEDS ORDERED: ONDANSETRON 4 MG/2 ML (SDV) Z0FRAN IV ONE (07:15)
[2020-05-29] MEDS ORDERED: FAMOTIDINE 20MG/2ML IV (PEPCID) IV ONE (07:15)
[2020-05-29] MEDS ORDERED: MUPIROCIN 2% OINT 22 GM (BACTROBAN) TUBE ONE (07:25)
--- NOTE | 2020-05-29 07:46 | Progress Note-Pre Operative ---
Pre-Operative Progress Note H&P Reviewed The H&P was reviewed, patient examined and no changes noted. Date Seen by Provider: May 29, 2020 Time Seen by Provider: 06:30 Date H&P Reviewed: May 29, 2020 Time H&P Reviewed: 06:30 Pre-Operative Diagnosis: Right Post Auricular Lesion, Right nasal ala lesion KAM SOLIS MD May 29, 2020 07:46
[2020-05-29] MEDS ORDERED: SEVOFLURANE (ULTANE) 15 ML INHAL SOLN ONE ×4 (08:09→09:01)
--- NOTE | 2020-05-29 09:14 | Progress Note-Post Operative ---
Post-Operative Progess Note Surgeon (s)/Wood Pile Driver Operator (s) Surgeon KAM SOLIS MD Wood Pile Driver Operator n/a Pre-Operative Diagnosis Right Post Auricular Lesion, Right nasal ala lesion Post-Operative Diagnosis same Post-Op Procedure Note Date of Procedure: May 29, 2020 Name of Procedure Performed: Wedge REsection Right EAr with Reconstruction with Bilateral Advancement Flaps, Excison of BAsal cell Right Nasal Alae with INtermediate Repair Description & Findings Description and Findings: n/a Anesthesia Type get Estimated Blood Loss minimal Packing none. Specimen(s) collected/removed right nasal alae-basal cell right ear-basal cell margins clear KAM SOLIS MD May 29, 2020 09:14
[2020-05-29] MEDS ORDERED: HYDROcodone/APAP 5 MG/325 MG (LORTAB) TAB PO PRN (09:15)
[2020-05-29] MEDS ORDERED: ACETAMINOPHEN 325 MG TABLET PO PRN (09:15)
[2020-05-29] MEDS ORDERED: HYDROmorphone 2 MG/ML VIAL (DILAUDID) IV ONE (09:30)
[2020-05-29] MEDS ORDERED: ONDANSETRON 4 MG/2 ML (SDV) Z0FRAN IVP PRN (09:30)
[2020-05-29] MEDS ORDERED: fentaNYL INJECTION 100 MCG/2 ML AMP IVP ONE (09:30)
[2020-05-29] MEDS ORDERED: PHENYLEPHRINE 100 MCG/ML 10 ML (ANESTHESIA) SYR ONE (10:29)
[2020-05-29] MEDS ORDERED: CEPH-507 PO (11:22)
[2020-05-29] MEDS ORDERED: HYDR-3812 PO (11:22)
--- NOTE | 2020-05-29 12:18 | Anesthesia-General Post-Op ---
General Patient Condition Mental Status/LOC: Same as Preop Cardiovascular: Satisfactory Nausea/Vomiting: Absent Respiratory: Satisfactory Pain: Controlled Complications: Absent Post Op Complications Complications None Follow Up Care/Instructions Patient Instructions None needed. Anesthesia/Patient Condition Patient Condition Patient is doing well, no complaints, stable vital signs, no apparent adverse anesthesia problems. No complications reported per nursing. OREN VELASCO TREATING AND PUMPING SUPERVISOR May 29, 2020 12:18
== END 2020-05-29 11:55 ==
LOC: SDC 06:02
PROVIDERS: ATTEND Otolaryngology Otolaryngology/Facial Plastic Surgery
DX: C44.311 Basal cell carcinoma of skin of nose (principal); C44.212 Basal cell carcinoma of skin of right ear and external auricular canal; I10 Essential (primary) hypertension; K21.9 Gastro-esophageal reflux disease without esophagitis; E03.9 Hypothyroidism, unspecified; E11.40 Type 2 diabetes mellitus with diabetic neuropathy, unspecified; Z79.899 Other long term (current) drug therapy
CPT/HCPCS: 88305; 88331; 88332

== ENCOUNTER → 2020-06-23 | Outpatient (CLI) | payer MEDICARE, OTHER ==
[~2020-06-23] MED LIST changes: +CEPH-507 PO; +ENOX30DI9 SQ; +HYDR-3812 PO
--- NOTE | 2020-06-23 13:35 | Diagnostic Imaging Report ---
EXAMINATION: US Right Lower Extremity Venous Duplex. TECHNIQUE: Multiple Real-time grayscale images were obtained over the right lower extremity in various projections. Additional spectral analysis and color Doppler duplex images were also obtained. HISTORY: Followup DVT in the right leg. COMPARISON: 09/28/2019. FINDINGS: Partially occlusive deep vein thrombus is seen within the proximal right superficial femoral vein. This area demonstrates partial compressibility. The thrombus extends into the mid and distal superficial femoral vein and popliteal vein demonstrating absent color Doppler flow and noncompressibility. There is flow noted within the posterior tibial vein. The peroneal vein does not demonstrate color Doppler flow. The common femoral vein demonstrates normal compressibility and spontaneity. There is partial compressibility of the profunda femoral vein with spontaneity intact. IMPRESSION: Relatively stable appearance of the chronic deep vein thrombus involving the superficial femoral vein and popliteal vein on the right. This also may include the peroneal vein with intact color Doppler flow within the posterior tibial veins. Dictated by: Dictated on workstation # [id number]
== END ==
LOC: RAD 13:00
PROVIDERS: ATTEND Nurse Practitioner Family
DX: I82.401 Acute embolism and thrombosis of unspecified deep veins of right lower extremity (principal); Z20.828 Contact with and (suspected) exposure to other viral communicable diseases

== ENCOUNTER → 2021-02-02 | Outpatient (CLI) | payer MEDICARE, OTHER ==
[~2021-02-02] MED LIST changes: +ACHD5005 PO; -CETI10TA21 PO; +CETI10TA49 PO; -HYDR-3812 PO; -LISI40TA PO; +LISI40TA9 PO
--- NOTE | 2021-02-02 17:48 | Diagnostic Imaging Report ---
INDICATION: Bilateral lower extremity claudication and edema. Noninvasive study performed in a routine fashion. Segmental pressures appeared symmetric with normal waveforms. Ankle-brachial index was 1.33 on the right side and 1.22 on the left side. IMPRESSION: Unremarkable noninvasive study. Dictated by: Dictated on workstation # [id number]
== END ==
LOC: RAD 13:45
PROVIDERS: ATTEND Family Medicine
DX: R60.0 Localized edema (principal)
CPT/HCPCS: 93922

== ENCOUNTER 2022-08-26 05:37 | Outpatient (CLI) | payer MEDICARE, OTHER ==
[~2022-08-26] VITALS: Ht 187.6 cm; Wt 104.6 kg
[~2022-08-26 05:37] MED LIST changes: -ENOX30DI9 SQ; +ENXP30I.3 SQ; -MOME13HF INH; +MOME13HF11 INH
[2022-08-26] MEDS ORDERED: FLUT9.9S NS (16:12)
[2022-08-26] MEDS ORDERED: MONT-40 PO (16:12)
[2022-08-26] MEDS ORDERED: APIX5TAB PO (16:25)
== END 2022-08-26 16:27 | disposition home or self-care (01) ==
LOC: PREOP 05:37
PROVIDERS: ATTEND Otolaryngology Otolaryngology/Facial Plastic Surgery
DX: Z01.818 Encounter for other preprocedural examination (principal)

== ENCOUNTER 2022-09-02 07:18 | Day surgery (SDC) | payer MEDICARE, OTHER ==
[~2022-09-02] VITALS: Ht 188 cm; Wt 103.0 kg
[2022-09-02] VITALS (10 sets, daily range): BP systolic 123–144; BP diastolic 60–76
[~2022-09-02 07:18] MED LIST changes: +FLUT9.9S NS; +MONT-40 PO
[2022-09-02 08:11] LABS: BASOPHILS % (AUTO) 0 % (0-10); EOSINOPHILS % (AUTO) 0 % (0-10); HEMATOCRIT 37 % (40-54); HEMOGLOBIN 12.6 g/dL (13.3-17.7); LYMPHOCYTES # (AUTO) 2.9 10^3/uL (1.0-4.0); LYMPHOCYTES % (AUTO) 34 % (12-44); MEAN CORPUSCULAR HEMOGLOBIN 29 pg (25-34); MEAN CORPUSCULAR HGB CONC 34 g/dL (32-36); MEAN CORPUSCULAR VOLUME 86 fL (80-99); MEAN PLATELET VOLUME 9.3 fL (9.0-12.2); MONOCYTES # (AUTO) 0.7 10^3/uL (0.0-1.0); MONOCYTES % (AUTO) 8 % (0-12); NEUTROPHILS # (AUTO) 4.9 10^3/uL (1.8-7.8); NEUTROPHILS % (AUTO) 57 % (42-75); PLATELET COUNT 189 10^3/uL (130-400); WHITE BLOOD COUNT 8.5 10^3/uL (4.3-11.0)
[2022-09-02] MEDS ORDERED: LACTATED RINGERS 1,000 ML IV PRN (08:15)
[2022-09-02 08:36] LABS: CALCIUM 8.9 MG/DL (8.5-10.1); CREATININE SERUM 1.15 MG/DL (0.60-1.30); POTASSIUM 3.6 MMOL/L (3.6-5.0)
[2022-09-02] MEDS ORDERED: LIDOCAINE/EPI 1%-1:100,000 (XYLOCAINE) 10 ML ONE (08:44)
[2022-09-02] MEDS ORDERED: fentaNYL INJ 100 MCG/2 ML AMP ONE (08:47)
[2022-09-02] MEDS ORDERED: ROCURONIUM 10 MG/ML 5 ML SYRINGE IV ONE (08:47)
[2022-09-02] MEDS ORDERED: LIDOCAINE PF 2% 5 ML (XYLOCAINE) VIAL ONE (08:47)
[2022-09-02] MEDS ORDERED: ONDANSETRON 4 MG/2 ML (SDV) Z0FRAN ONE (08:47)
[2022-09-02] MEDS ORDERED: proPOfol 200 MG/20 ML (DIPRIVAN) VIAL IV ONE (08:47)
[2022-09-02] MEDS ORDERED: SEVOFLURANE (ULTANE) 15 ML INHAL SOLN ONE ×2 (08:47→10:05)
[2022-09-02] MEDS ORDERED: MUPIROCIN 2% OINT 22 GM (BACTROBAN) TUBE ONE (08:55)
[2022-09-02] MEDS ORDERED: LIDOCAINE/EPI 1%-1:100,000 (XYLOCAINE) 10 ML INJ ONE (09:50)
[2022-09-02] MEDS ORDERED: MUPIROCIN 2% OINT 22 GM (BACTROBAN) TUBE TOP ONE (10:01)
[2022-09-02] MEDS ORDERED: BSS 15 ML ONE (10:03)
[2022-09-02] MEDS ORDERED: BSS 15 ML IO ONE (10:06)
--- NOTE | 2022-09-02 10:11 | Progress Note-Pre Operative ---
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
--- NOTE | 2022-09-02 10:12 | Progress Note-Post Operative ---
Post-Operative Progess Note Surgeon (s)/Salesperson Sewing Machines (s) Surgeon KAM SOLIS MD Salesperson Sewing Machines n/a Pre-Operative Diagnosis Basal Cell Carcinoma of Nasal Tip Post-Operative Diagnosis same Post-Op Procedure Note Date of Procedure: Sep 02, 2022 Name of Procedure Performed: Excision of Basal cell Carcinoma, REconstruction with Full Thickness Skin Graft-Donor Site-Left PREAURICULAR Site Description & Findings Description and Findings: n/a Anesthesia Type lma Estimated Blood Loss minimal Packing none. Specimen(s) collected/removed nasal tip lesion for frozen section KAM SOLIS MD Sep 02, 2022 10:12
[2022-09-02] MEDS ORDERED: ACETAMINOPHEN 325 MG TABLET PO PRN (10:15)
[2022-09-02] MEDS ORDERED: HYDROcodone/APAP 5 MG/325 MG (LORTAB) TAB PO PRN (10:15)
[2022-09-02] MEDS ORDERED: CEPH500T PO (11:19)
[2022-09-02] MEDS ORDERED: ACHD5005 PO (11:19)
--- NOTE | 2022-09-02 13:21 | Anesthesia-General Post-Op ---
General Patient Condition Mental Status/LOC: Same as Preop Cardiovascular: Satisfactory Nausea/Vomiting: Absent Respiratory: Satisfactory Pain: Controlled Complications: Absent Post Op Complications Complications None Follow Up Care/Instructions Patient Instructions None needed. Anesthesia/Patient Condition Patient Condition Patient is doing well, no complaints, stable vital signs, no apparent adverse anesthesia problems. No complications reported per nursing. JENNIFER BOO CRNA Sep 02, 2022 13:21
== END 2022-09-02 12:40 | disposition home or self-care (01) ==
LOC: SDC 07:18
PROVIDERS: ATTEND Otolaryngology Otolaryngology/Facial Plastic Surgery
DX: C44.311 Basal cell carcinoma of skin of nose (principal)
CPT/HCPCS: 36415; 80048; 85025; 87081; 93005

== ENCOUNTER → 2023-06-02 | Outpatient (CLI) | payer MEDICARE, OTHER ==
[~2023-06-02] MED LIST changes: +CEPH500T PO
--- NOTE | 2023-06-02 16:47 | Diagnostic Imaging Report ---
Indication: Left toe injury 3 views of the 1st through 3rd toes on the left foot show no fracture, dislocation or other acute abnormalities. IMPRESSION: Negative left toes Dictated by: Dictated on workstation # [id number]
== END ==
LOC: RAD 15:43
PROVIDERS: ATTEND Internal Medicine
DX: S99.922A Unspecified injury of left foot, initial encounter (principal)
CPT/HCPCS: 73660

== ENCOUNTER → 2023-07-05 | Outpatient (CLI) | payer MEDICARE, OTHER ==
--- NOTE | 2023-07-05 20:56 | Diagnostic Imaging Report ---
INDICATION: Question nodules EXAMINATION: Two-view chest 07/05/2023 COMPARISON: 05/02/2019 FINDINGS: Two views of the chest. There is a prominent soft tissue density in the anterior aspect of the lower chest on lateral view which appears to be stable from previous imaging and caused by prominent fat pad in the anterior right lower chest on CT from 06/06/2019. Heart and pulmonary vasculature normal. No infiltrates, effusions or pneumothorax. IMPRESSION: 1. No acute cardiopulmonary process. No nodules appreciated but if there is continued concern CT recommended. Dictated by: Dictated on workstation # [id number]
== END ==
LOC: RAD 11:19
PROVIDERS: ATTEND Family Medicine
DX: R91.1 Solitary pulmonary nodule (principal)
CPT/HCPCS: 71046